=== PATIENT | female | born 1955 | race Caucasian/White ===

== ENCOUNTER 2017-07-31 18:57 | Emergency (ER) | payer BC ==
[2017-07-31] MEDS ORDERED: Diphtheria,Pertussis(Acell),Tetanus Vaccine 0.5 ML Syringe IM ONE (19:18)
[2017-07-31] MEDS ORDERED: Bacitracin Oint 1 GM U/D Packet TOP ONE (19:19)
--- NOTE | 2017-07-31 19:23 | EDM.PDOC ---
ED HPI GENERAL MEDICAL PROBLEM - General Chief Complaint: Laceration Stated Complaint: PT CUT LT HAND Time Seen by Provider: 07/31/17 19:12 - History of Present Illness INITIAL COMMENTS - FREE TEXT/NARRATIVE: HISTORY AND PHYSICAL: History of present illness: The patient is a 61-year-old female with a history of hypertension who presents after sustaining a puncture laceration to her left hand while she was using a knife at home making a salad. Prior to these events the patient was in her usual state of health with no systemic complaints and presents because the area would not stop bleeding. She has no neurosensory changes in her hand and is able to move all digits without compromise. She is unsure of her last tetanus shot. Review of systems: As per history of present illness and below otherwise all systems reviewed and negative. Past medical history: As per history of present illness and as reviewed below otherwise noncontributory. Surgical history: As per history of present illness and as reviewed below otherwise noncontributory. Social history: No reported history of drug or alcohol abuse. Family history: As per history of present illness and as reviewed below otherwise noncontributory. Physical exam: General: Well-developed well-nourished overweight female who is nontoxic and vital signs are reviewed by me HEENT: Atraumatic, normocephalic, negative for conjunctival pallor or scleral icterus, mucous membranes moist, throat clear, neck supple, nontender, trachea midline. Lungs: Clear to auscultation, breath sounds equal bilaterally, chest nontender. Heart: S1S2, regular rate and rhythm no overt murmurs Abdomen: Soft, nondistended, nontender. NABS Pelvis: Deferred Genitourinary: Deferred. Rectal: Deferred. Extremities: Atraumatic with full range of motion of all extremities with the exception of the palmar surface of the left hand. At the left hand on the palmar surface near the second MCP there is a 0.5 cm puncture laceration seen which has a slight ooze of blood but no erythema or drainage and no soft tissue swelling. There are no palpable bony deformities and the patient is able to flex and extend throughout all digits without deficits and against resistance. Neurovascular unremarkable. Neuro: Awake, alert, oriented. Cranial nerves II through XII unremarkable. Cerebellum unremarkable. Motor and sensory unremarkable throughout. Exam nonfocal. Diagnostics: [] Therapeutics: Wound care with cleansing and bacitracin and gauze dressing, Tdap Because this is a puncture wound and is very small I will not tach close and have explained to the patient why. We will place her on antibiotics and wound care and have her follow up with her provider in the clinic Impression: Small puncture laceration to left hand stable Definitive disposition and diagnosis as appropriate pending reevaluation and review of above. left hand Pain Score (Numeric/FACES): 2 - Related Data Allergies Allergy/AdvReac Type Severity Reaction Status Date / Time pollen extracts Allergy Fever Verified 07/31/17 19:10 Sulfa (Sulfonamide Allergy Rash Verified 07/31/17 19:10 Antibiotics) Home Meds: Home Meds Levothyroxine 137 mcg PO ONETIME 12/10/14 [History] amLODIPine Besylate [Amlodipine Besylate] 10 mg PO ONETIME 12/10/14 [History] Past Medical History HEENT History: Reports: None Cardiovascular History: Reports: Hypertension Respiratory History: Reports: None Gastrointestinal History: Reports: None Genitourinary History: Reports: None 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 Musculoskeletal History: Reports: None Neurological History: Reports: None Psychiatric History: Reports: None Endocrine/Metabolic History: Reports: Hypothyroidism Other Endocrine/Metabolic History: hypothyroidism Hematologic History: Reports: None Immunologic History: Reports: None Oncologic (Cancer) History: Reports: None Dermatologic History: Reports: None - Infectious Disease History Infectious Disease History: Reports: Measles - Past Surgical History Head Surgeries/Procedures: Reports: None HEENT Surgical History: Reports: None Cardiovascular Surgical History: Reports: None Respiratory Surgical History: Reports: None GI Surgical History: Reports: None Female Surgical History: Reports: Breast Reduction Endocrine Surgical History: Reports: None Musculoskeletal Surgical History: Reports: None Social & Family History - Family History Family Medical History: Noncontributory - Tobacco Use Smoking Status *Q: Never Smoker - Caffeine Use Caffeine Use: Reports: Coffee - Recreational Drug Use Recreational Drug Use: No ED ROS GENERAL - Review of Systems Review Of Systems: ROS reveals no pertinent complaints other than HPI. ED EXAM, SKIN/RASH Exam: See Below (See dictation) Course - Vital Signs Last Recorded V/S: Last Vital Signs Temp 36.6 C 07/31/17 19:11 Pulse 82 07/31/17 19:11 Resp 18 07/31/17 19:11 BP 108/81 07/31/17 19:11 Pulse Ox 95 07/31/17 19:11 - Orders/Labs/Meds Orders: Active Orders 24 hr Category Date Time Status Communication Order [RC] STAT Care 07/31/17 19:18 Ordered Vaccines to be Administered [RC] PER UNIT ROUTINE Care 07/31/17 19:19 Ordered Bacitracin [Bacitracin Oint 1 GM] Med 07/31/17 19:19 Once 1 dose TOP ONETIME ONE Diphth,Pertuss(Acell),Tet Vac [Adacel] Med 07/31/17 19:18 Once 0.5 ml IM .ONCE ONE Departure - Departure Time of Disposition: 19:22 Disposition: Home, Self-Care 01 Condition: Good Clinical Impression: Puncture wound of hand, left Qualifiers: Encounter type: initial encounter Foreign body presence: without foreign body Qualified Code(s): S61.432A - Puncture wound without foreign body of left hand, initial encounter - Discharge Information Referrals: PCP,None [Primary Care Provider] - Additional Instructions: The following information is given to patients seen in the emergency department who are being discharged to home. This information is to outline your options for follow-up care. We provide all patients seen in our emergency department with a follow-up referral. The need for follow-up, as well as the timing and circumstances, are variable depending upon the specifics of your emergency department visit. If you don't have a primary care physician on staff, we will provide you with a referral. We always advise you to contact your personal physician following an emergency department visit to inform them of the circumstance of the visit and for follow-up with them and/or the need for any referrals to a consulting specialist. The emergency department will also refer you to a specialist when appropriate. This referral assures that you have the opportunity for followup care with a specialist. All of these measure are taken in an effort to provide you with optimal care, which includes your followup. Under all circumstances we always encourage you to contact your private physician who remains a resource for coordinating your care. When calling for followup care, please make the office aware that this follow-up is from your recent emergency room visit. If for any reason you are refused follow-up, please contact the [facility] emergency department at and ask to speak to the emergency department charge nurse. JOVAN [facility] Primary care- Internal Medicine and Family [facility] [address] [place] [id number] [facility] Specialty clinic-Plastic Surgery and Hand Surgery Professional Building [address] [place] [address] [address] [place] [address] Please schedule a follow-up appointment with your provider in the clinic or our hand specialist using resources given to above. Do local wound care with mild soap and tap water once or twice a day and apply bacitracin or Neosporin and leave open to air or dressed with a gauze only. Please take antibiotics until they are finished. Return to ER as needed and as discussed - My Orders Last 24 Hours: My Active Orders 07/31/17 19:18 Communication Order [RC] STAT Diphth,Pertuss(Acell),Tet Vac [Adacel] 0.5 ml IM .ONCE ONE 07/31/17 19:19 Vaccines to be Administered [RC] PER UNIT ROUTINE Bacitracin [Bacitracin Oint 1 GM] 1 dose TOP ONETIME ONE - Assessment/Plan Last 24 Hours: My Active Orders 07/31/17 19:18 Communication Order [RC] STAT Diphth,Pertuss(Acell),Tet Vac [Adacel] 0.5 ml IM .ONCE ONE 07/31/17 19:19 Vaccines to be Administered [RC] PER UNIT ROUTINE Bacitracin [Bacitracin Oint 1 GM] 1 dose TOP ONETIME ONE
[2017-07-31 19:56] VITALS: BP 111/59
== END 2017-07-31 19:50 | disposition home or self-care (01) ==
LOC: MW.ED 18:57
DX: S61.432A Puncture wound without foreign body of left hand, initial encounter (principal); I10 Essential (primary) hypertension; E03.9 Hypothyroidism, unspecified; Z91.048 Other nonmedicinal substance allergy status; Z23 Encounter for immunization; Z88.2 Allergy status to sulfonamides; W26.0XXA Contact with knife, initial encounter; Y92.009 Unspecified place in unspecified non-institutional (private) residence as the place of occurrence of the external cause
CPT/HCPCS: 90471; 90715; 99282-25

== ENCOUNTER 2018-05-31 13:29 | Emergency (ER) | payer BC ==
[2018-05-31] MEDS ORDERED: diphenhydrAMINE 25 MG Cap PO ONE (13:31)
[2018-05-31] MEDS ORDERED: predniSONE 20 MG Tab PO ONE (13:31)
--- NOTE | 2018-05-31 13:40 | EDM.PDOC ---
ED HPI GENERAL MEDICAL PROBLEM - General Chief Complaint: Allergic Reaction Stated Complaint: ALLERGIC REACTION Time Seen by Provider: 05/31/18 13:31 Source of Information: Reports: Patient History Limitations: Reports: No Limitations - History of Present Illness INITIAL COMMENTS - FREE TEXT/NARRATIVE: History of present illness: []Patient has been having intermittent hives for the last 2 weeks and is not sure what she is reacting to. Today around noon patients reaction became worse with more hives around her neck and she felt that her voice became hoarse. She denies having any difficulty breathing, swallowing or feeling tightness in her throat. She took 2 Benadryl tablets one symptoms worsened. She denies any abdominal crampy: Nausea, vomiting or any other symptoms. Review of systems: As per history of present illness and below otherwise all systems reviewed and negative. Past medical history: As per history of present illness and as reviewed below otherwise noncontributory. Surgical history: As per history of present illness and as reviewed below otherwise noncontributory. Social history: No reported history of drug or alcohol abuse. Family history: As per history of present illness and as reviewed below otherwise noncontributory. Physical exam: General: Well developed, well nourished in NAD HEENT: Atraumatic, normocephalic, pupils reactive, negative for conjunctival pallor or scleral icterus, mucous membranes moist, throat clear no edema,, neck supple, nontender, trachea midline. No stridor Lungs: Clear to auscultation, breath sounds equal bilaterally, chest nontender. Heart: S1S2, regular, negative for clicks, rubs, or JVD. Abdomen: NABS, Soft, nondistended, nontender. Negative for masses or hepatosplenomegaly. Negative for costovertebral tenderness. Pelvis: Stable nontender. Genitourinary: Deferred. Rectal: Deferred. Extremities: Atraumatic, negative for cords or calf pain. Neurovascular unremarkable. Neuro: Awake, alert, oriented. Cranial nerves II through XII unremarkable. Cerebellum unremarkable. Motor and sensory unremarkable throughout. Exam nonfocal. Skin: Diffuse irregular raised pale to mildly erythematous lesions consistent with urticaria, warm and dry Diagnostics: None Therapeutics: Benadryl, prednisone, Pepcid, IV hydration, epinephrine ED Course: Recheck patient at 14:00 and throat is now edematous she has no stridor and patient does not feel any throat tightness Impression: Urticaria Prescriptions: Medrol Dosepak Plan: Follow up with primary care, take medicines as directed, trachea symptoms worsen or change. Definitive disposition and diagnosis as appropriate pending reevaluation and review of above. - Related Data Allergies Allergy/AdvReac Type Severity Reaction Status Date / Time pollen extracts Allergy Fever Verified 05/31/18 13:38 Sulfa (Sulfonamide Allergy Rash Verified 05/31/18 13:38 Antibiotics) Home Meds: Home Meds Levothyroxine 137 mcg PO ONETIME 12/10/14 [History] amLODIPine Besylate [Amlodipine Besylate] 10 mg PO ONETIME 12/10/14 [History] Lisinopril 05/31/18 [History] methylPREDNISolone [Medrol] 4 mg PO ASDIRECTED #1 dosepk 05/31/18 [Rx] Past Medical History HEENT History: Reports: None Cardiovascular History: Reports: Hypertension Respiratory History: Reports: None Gastrointestinal History: Reports: None Genitourinary History: Reports: None 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 Musculoskeletal History: Reports: None Neurological History: Reports: None Psychiatric History: Reports: None Endocrine/Metabolic History: Reports: Hypothyroidism Other Endocrine/Metabolic History: hypothyroidism Hematologic History: Reports: None Immunologic History: Reports: None Oncologic (Cancer) History: Reports: None Dermatologic History: Reports: None - Infectious Disease History Infectious Disease History: Reports: Measles - Past Surgical History Head Surgeries/Procedures: Reports: None HEENT Surgical History: Reports: None Cardiovascular Surgical History: Reports: None Respiratory Surgical History: Reports: None GI Surgical History: Reports: None Female Surgical History: Reports: Breast Reduction Endocrine Surgical History: Reports: None Musculoskeletal Surgical History: Reports: None Social & Family History - Family History Family Medical History: Noncontributory - Caffeine Use Caffeine Use: Reports: Coffee ED ROS ALLERGIC REACTION - Review of Systems Review Of Systems: ROS reveals no pertinent complaints other than HPI. ED EXAM GENERAL NO PERIP PULSE - Physical Exam Exam: See Below (See history of present illness) Course - Vital Signs Last Recorded V/S: Last Vital Signs Temp 97.0 F 05/31/18 13:33 Pulse 68 05/31/18 13:33 Resp 20 05/31/18 13:33 BP 175/87 H 05/31/18 13:33 Pulse Ox 97 05/31/18 13:33 - Orders/Labs/Meds Orders: Active Orders 24 hr Category Date Time Status Sodium Chloride 0.9% [Saline Flush] Med 05/31/18 13:59 Active 10 ml FLUSH ASDIRECTED PRN Sodium Chloride 0.9% [Saline Flush] Med 05/31/18 13:59 Active 2.5 ml FLUSH ASDIRECTED PRN Saline Lock Insert [OM.PC] Stat Oth 05/31/18 13:58 Ordered Medication Orders Sodium Chloride (Saline Flush) 10 ml FLUSH ASDIRECTED PRN PRN Reason: Keep Vein Open Last Admin: 05/31/18 14:10 Dose: 10 ml Sodium Chloride (Saline Flush) 2.5 ml FLUSH ASDIRECTED PRN PRN Reason: Keep Vein Open Last Admin: 05/31/18 14:10 Dose: 2.5 ml Meds: Medications Generic Name Dose Route Start Last Admin Trade Name Freq PRN Reason Stop Dose Admin Sodium Chloride 10 ml 05/31/18 13:59 05/31/18 14:10 Saline Flush FLUSH 10 ml ASDIRECTED PRN Administration Keep Vein Open Sodium Chloride 2.5 ml 05/31/18 13:59 05/31/18 14:10 Saline Flush FLUSH 2.5 ml ASDIRECTED PRN Administration Keep Vein Open Discontinued Medications Generic Name Dose Route Start Last Admin Trade Name Freq PRN Reason Stop Dose Admin Diphenhydramine HCl 25 mg 05/31/18 13:31 05/31/18 13:42 Benadryl PO 05/31/18 13:32 25 mg ONETIME ONE Administration Epinephrine HCl 0.4 mg 05/31/18 13:59 05/31/18 14:09 Adrenalin IM 05/31/18 14:00 0.4 mg ONETIME ONE Administration Famotidine 20 mg 05/31/18 13:59 05/31/18 14:10 Pepcid IVPUSH 05/31/18 14:00 20 mg ONETIME ONE Administration Sodium Chloride 1,000 mls @ 999 mls/hr 05/31/18 14:15 05/31/18 14:41 Normal Saline IV 05/31/18 15:15 999 mls/hr .Bolus ONE Administration Prednisone 60 mg 05/31/18 13:31 05/31/18 13:42 Prednisone PO 05/31/18 13:32 60 mg ONETIME ONE Administration Departure - Departure Time of Disposition: 15:23 Disposition: Home, Self-Care 01 Condition: Good Clinical Impression: Urticaria - Discharge Information *PRESCRIPTION DRUG MONITORING PROGRAM REVIEWED*: No *COPY OF PRESCRIPTION DRUG MONITORING REPORT IN PATIENT KATHLEEN: No Prescriptions: methylPREDNISolone [Medrol] 4 mg PO ASDIRECTED #1 dosepk Additional Instructions: The following information is given to patients seen in the emergency department who are being discharged to home. This information is to outline your options for follow-up care. We provide all patients seen in our emergency department with a follow-up referral. The need for follow-up, as well as the timing and circumstances, are variable depending upon the specifics of your emergency department visit. If you don't have a primary care physician on staff, we will provide you with a referral. We always advise you to contact your personal physician following an emergency department visit to inform them of the circumstance of the visit and for follow-up with them and/or the need for any referrals to a consulting specialist. The emergency department will also refer you to a specialist when appropriate. This referral assures that you have the opportunity for follow-up care with a specialist. All of these measure are taken in an effort to provide you with optimal care, which includes your follow-up. Under all circumstances we always encourage you to contact your private physician who remains a resource for coordinating your care. When calling for follow-up care, please make the office aware that this follow-up is from your recent emergency room visit. If for any reason you are refused follow-up, please contact the [facility] Emergency Department at and asked to speak to the emergency department charge nurse. Take meds as directed, you can also take Pepcid twice a day as well as Benadryl for itching and hives. follow up with your primary care physician, return to ER if symptoms worsen or change. [facility] [address] [place] [id number] - My Orders Last 24 Hours: My Active Orders 05/31/18 13:58 Saline Lock Insert [OM.PC] Stat 05/31/18 13:59 Sodium Chloride 0.9% [Saline Flush] 10 ml FLUSH ASDIRECTED PRN Sodium Chloride 0.9% [Saline Flush] 2.5 ml FLUSH ASDIRECTED PRN - Assessment/Plan Last 24 Hours: My Active Orders 05/31/18 13:58 Saline Lock Insert [OM.PC] Stat 05/31/18 13:59 Sodium Chloride 0.9% [Saline Flush] 10 ml FLUSH ASDIRECTED PRN Sodium Chloride 0.9% [Saline Flush] 2.5 ml FLUSH ASDIRECTED PRN
[2018-05-31] MEDS ORDERED: Famotidine 20 MG/2 ML SDV IVPUSH ONE (13:59)
[2018-05-31] MEDS ORDERED: Sodium Chloride 0.9% 10 ML Syringe FLUSH PRN (13:59)
[2018-05-31] MEDS ORDERED: EPINEPHrine 1 MG/ML SDV IM ONE (13:59)
[2018-05-31] MEDS ORDERED: Sodium Chloride 0.9% 2.5 ML Syringe FLUSH PRN (13:59)
[2018-05-31] MEDS ORDERED: Sodium Chloride 0.9% 1,000 ML IV ONE (14:15)
[2018-05-31 15:47] VITALS: BP 183/75
== END 2018-05-31 15:44 | disposition home or self-care (01) ==
LOC: MW.ED 13:29
DX: L50.9 Urticaria, unspecified (principal); I10 Essential (primary) hypertension; E03.9 Hypothyroidism, unspecified; Z79.899 Other long term (current) drug therapy; Z88.2 Allergy status to sulfonamides; Z88.8 Allergy status to other drugs, medicaments and biological substances
CPT/HCPCS: 96361; 96372; 96374; 99283; A9270; J0171; J3490; J7040

== ENCOUNTER 2018-06-10 18:53 | Emergency (ER) | payer BC ==
[2018-06-10] MEDS ORDERED: predniSONE 20 MG Tab PO ONE (19:12)
[2018-06-10] MEDS ORDERED: diphenhydrAMINE 50 MG Cap PO ONE (19:13)
--- NOTE | 2018-06-10 19:16 | EDM.PDOC ---
ED HPI GENERAL MEDICAL PROBLEM - General Chief Complaint: Allergic Reaction Stated Complaint: ALLERGY ATTACK Time Seen by Provider: 06/10/18 19:01 - History of Present Illness INITIAL COMMENTS - FREE TEXT/NARRATIVE: HISTORY AND PHYSICAL: History of present illness: Patient is a 62-year-old white female who is a history of urticaria this is been a chronic intermittent problem she had a recent event was treated appropriately chest her medications were subsequently terminated pending allergy immunology follow-up which is scheduled Thursday in the interim she developed recurrence of the urticaria. There's been no tongue or lip swelling no dysphagia or dysphonia Review of systems: As per history of present illness and below otherwise all systems reviewed and negative. Past medical history: As per history of present illness and as reviewed below otherwise noncontributory. Surgical history: As per history of present illness and as reviewed below otherwise noncontributory. Social history: No reported history of drug or alcohol abuse. Family history: As per history of present illness and as reviewed below otherwise noncontributory. Physical exam: HEENT: Atraumatic, normocephalic, pupils reactive, negative for conjunctival pallor or scleral icterus, mucous membranes moist, throat clear, neck supple, nontender, trachea midline. Lungs: Clear to auscultation, breath sounds equal bilaterally, chest nontender. Heart: S1S2, regular, negative for clicks, rubs, or JVD. Abdomen: Soft, nondistended, nontender. Negative for masses or hepatosplenomegaly. Negative for costovertebral tenderness. Pelvis: Stable nontender. Genitourinary: Deferred. Rectal: Deferred. Extremities: Atraumatic, negative for cords or calf pain. Neurovascular unremarkable. Neuro: Awake, alert, oriented. Cranial nerves II through XII unremarkable. Cerebellum unremarkable. Motor and sensory unremarkable throughout. Exam nonfocal. Skin: Patient has diffuse urticarial type rash no petechiae and nontoxic in appearance Diagnostics: None Therapeutics: Benadryl 50 mg by mouth prednisone 60 mg by mouth Impression: #1 urticaria Definitive disposition and diagnosis as appropriate pending reevaluation and review of above. - Related Data Allergies Allergy/AdvReac Type Severity Reaction Status Date / Time methylprednisolone Allergy Rash Verified 06/10/18 19:02 pollen extracts Allergy Fever Verified 05/31/18 13:38 Sulfa (Sulfonamide Allergy Rash Verified 05/31/18 13:38 Antibiotics) Home Meds: Home Meds Levothyroxine 137 mcg PO ONETIME 12/10/14 [History] amLODIPine Besylate [Amlodipine Besylate] 10 mg PO ONETIME 12/10/14 [History] Lisinopril 05/31/18 [History] methylPREDNISolone [Medrol] 4 mg PO ASDIRECTED #1 dosepk 05/31/18 [Rx] Past Medical History HEENT History: Reports: None Cardiovascular History: Reports: Hypertension Respiratory History: Reports: None Gastrointestinal History: Reports: None Genitourinary History: Reports: None [employer] History: Reports: None Musculoskeletal History: Reports: None Neurological History: Reports: None Psychiatric History: Reports: None Endocrine/Metabolic History: Reports: Hypothyroidism Other Endocrine/Metabolic History: hypothyroidism Hematologic History: Reports: None Immunologic History: Reports: None Oncologic (Cancer) History: Reports: None Dermatologic History: Reports: None - Infectious Disease History Infectious Disease History: Reports: Measles, Mononucleosis - Past Surgical History Head Surgeries/Procedures: Reports: None HEENT Surgical History: Reports: None Cardiovascular Surgical History: Reports: None Respiratory Surgical History: Reports: None GI Surgical History: Reports: None Female Surgical History: Reports: Breast Reduction Endocrine Surgical History: Reports: None Musculoskeletal Surgical History: Reports: None Social & Family History - Family History Family Medical History: Noncontributory - Tobacco Use Smoking Status *Q: Never Smoker Second Hand Smoke Exposure: No - Caffeine Use Caffeine Use: Reports: Coffee - Recreational Drug Use Recreational Drug Use: No ED ROS ALLERGIC REACTION - Review of Systems Review Of Systems: ROS reveals no pertinent complaints other than HPI. ED EXAM GENERAL NO PERIP PULSE - Physical Exam Exam: See Below (See dictation) Course - Vital Signs Last Recorded V/S: Last Vital Signs Temp 37.2 C 06/10/18 19:03 Pulse 86 06/10/18 19:03 Resp 16 06/10/18 19:03 BP 185/98 H 06/10/18 19:03 Pulse Ox 97 06/10/18 19:03 - Orders/Labs/Meds Orders: Active Orders 24 hr Category Date Time Status diphenhydrAMINE [Benadryl] Med 06/10/18 19:13 Once 50 mg PO ONETIME ONE Meds: Medications Discontinued Medications Generic Name Dose Route Start Last Admin Trade Name Freq PRN Reason Stop Dose Admin Prednisone 60 mg 06/10/18 19:12 Prednisone PO 06/10/18 19:13 ONETIME ONE Departure - Departure Time of Disposition: 19:15 Disposition: Home, Self-Care 01 Condition: Good Clinical Impression: Urticaria - Discharge Information Referrals: PCP,None [Primary Care Provider] - Additional Instructions: The following information is given to patients seen in the emergency department who are being discharged to home. This information is to outline your options for follow-up care. We provide all patients seen in our emergency department with a follow-up referral. The need for follow-up, as well as the timing and circumstances, are variable depending upon the specifics of your emergency department visit. If you don't have a primary care physician on staff, we will provide you with a referral. We always advise you to contact your personal physician following an emergency department visit to inform them of the circumstance of the visit and for follow-up with them and/or the need for any referrals to a consulting specialist. The emergency department will also refer you to a specialist when appropriate. This referral assures that you have the opportunity for followup care with a specialist. All of these measure are taken in an effort to provide you with optimal care, which includes your followup. Under all circumstances we always encourage you to contact your private physician who remains a resource for coordinating your care. When calling for followup care, please make the office aware that this follow-up is from your recent emergency room visit. If for any reason you are refused follow-up, please contact the [facility] emergency department at and asked to speak to the emergency department charge nurse. Benadryl prednisone as directed EpiPen as discussed keep scheduled appointment on Thursday return as needed as discussed - My Orders Last 24 Hours: My Active Orders 06/10/18 19:13 diphenhydrAMINE [Benadryl] 50 mg PO ONETIME ONE - Assessment/Plan Last 24 Hours: My Active Orders 06/10/18 19:13 diphenhydrAMINE [Benadryl] 50 mg PO ONETIME ONE
[2018-06-10 19:54] VITALS: BP 170/86
== END 2018-06-10 19:40 | disposition home or self-care (01) ==
LOC: MW.ED 18:53
DX: L50.9 Urticaria, unspecified (principal); I10 Essential (primary) hypertension; Z79.899 Other long term (current) drug therapy; Z88.2 Allergy status to sulfonamides; Z91.09 Other allergy status, other than to drugs and biological substances; Z88.8 Allergy status to other drugs, medicaments and biological substances
CPT/HCPCS: 99284; A9270; 99282

== ENCOUNTER 2018-06-23 10:58 | Emergency (ER) | payer BC ==
[2018-06-23] MEDS ORDERED: Sodium Chloride 0.9% 1,000 ML IV ONE (11:14)
[2018-06-23] MEDS ORDERED: diphenhydrAMINE 50 MG/ML SDV IVPUSH ONE (11:14)
[2018-06-23] MEDS ORDERED: Famotidine 20 MG/2 ML SDV IVPUSH ONE (11:14)
--- NOTE | 2018-06-23 11:24 | EDM.PDOC ---
ED HPI GENERAL MEDICAL PROBLEM - General Chief Complaint: Allergic Reaction Stated Complaint: ALLERGIC REACTION Time Seen by Provider: 06/23/18 11:01 Source of Information: Reports: Patient History Limitations: Reports: No Limitations - History of Present Illness INITIAL COMMENTS - FREE TEXT/NARRATIVE: HISTORY AND PHYSICAL: History of present illness: Patient is a 62-year-old female who presents to the emergency room today with complaints of lip swelling. She states over the past 2 weeks she has been dealing with hives which she has been treated for an allergic reaction. She states she did actually follow-up with an [employer] rug setter who told her that this was not an allergic reaction. She states she finished a course of steroids approximately 5 days ago. The [employer] rug setter believes that her hives is related to her thyroid or another underlying cause. Patient reports that her hives have been healing and are better than they have been. This morning she woke up and had coffee, oatmeal with raisins and proceeded to go to work. She started to notice her lips began to swell and was concerned the "allergic reaction" was returning. Denies any dyspnea, shortness of breathe, tongue swelling. She did take his Zyrtec prior to arrival. She denies any new exposures. Patient denies any fever, chills, headache, change in vision, syncope or near syncope. Denies any chest pain, back pain, shortness of breath or cough. Denies any abdominal pain, nausea, vomiting, diarrhea, constipation or dysuria. Patient has been eating and drinking appropriately. Review of systems: As per history of present illness and below otherwise all systems reviewed and negative. Past medical history: As per history of present illness and as reviewed below otherwise noncontributory. Surgical history: As per history of present illness and as reviewed below otherwise noncontributory. Social history: See social history for further information Family history: As per history of present illness and as reviewed below otherwise noncontributory. Physical exam: General: Well-developed and well-nourished 62-year-old female. Alert and oriented. Nontoxic appearing and in no acute distress. HEENT: Atraumatic, normocephalic, pupils equal and reactive bilaterally, negative for conjunctival pallor or scleral icterus, mucous membranes moist, upper and lower lip swelling TMs normal bilaterally, throat clear (no soft tissue swelling posteriorly), neck supple, nontender, trachea midline. No drooling or trismus noted. No meningeal signs. No hot potato voice noted. Lungs: Clear to auscultation, breath sounds equal bilaterally, chest nontender. Breathes easily and even. No work of breathing. Able to swallow salivia and drinks without difficulty. Heart: S1S2, regular rate and rhythm without overt murmur Abdomen: Soft, nondistended, nontender. Negative for masses or hepatosplenomegaly. Negative for costovertebral tenderness. Pelvis: Stable nontender. Genitourinary: Deferred. Rectal: Deferred. Skin: Mild lip swelling to upper/lower lips. Intact, warm, dry. No lesions or rashes noted. Extremities: Atraumatic, moves all extremities per self with difficulty or deficits, negative for cords or calf pain. Neurovascular unremarkable. Neuro: Awake, alert, oriented. Cranial nerves II through XII unremarkable. Cerebellum unremarkable. Motor and sensory unremarkable throughout. Exam nonfocal. Notes: Patient does take lisinopril daily, has taken this for approximately a year. As she has not had any new exposures I feel that her angioedema is related to her lisinopril use. Will have her stop this medication now. She states she feels better since arrival. She states that her air way does not feel compromised. is at the bedside. Admission was offered, patient declines. We did discuss signs and symptoms that would prompt her to immediately return to the emergency room. Both voice understanding. Supportive care measures were reviewed and discussed. Voices understanding and is agreeable to plan of care. Denies any further questions or concerns at this time. Diagnostics: None Therapeutics: IV fluids, Pepcid, Benadryl Prescription: Medrol Dosepak Metoprolol Succ Impression: Allergic reaction, Buck Inhibitor Plan: 1. Stop your Lisinopril. This is considered an allergy, do not take any BUCK INHIBITORS in the future. 2. While symptomatic continue to routinely take Benadryl 50mg every 4-6 hours and Zantac 150mg twice daily. Take the Medrol dose pack as prescribed. 3. Carry your Epi-Pen with you at all times. Use in the case of an emergency and call 911 and/or present to the ER. 4. Please follow up with your Primary care doctor tomorrow. Return to the ED as needed and as discussed. Definitive disposition and diagnosis as appropriate pending reevaluation and review of above. Onset: Today - Related Data Allergies Allergy/AdvReac Type Severity Reaction Status Date / Time methylprednisolone Allergy Rash Verified 06/23/18 11:03 pollen extracts Allergy Fever Verified 06/23/18 11:03 Sulfa (Sulfonamide Allergy Rash Verified 06/23/18 11:03 Antibiotics) Home Meds: Home Meds Levothyroxine 137 mcg PO ONETIME 12/10/14 [History] amLODIPine Besylate [Amlodipine Besylate] 10 mg PO ONETIME 12/10/14 [History] Lisinopril 2.5 mg PO DAILY 05/31/18 [History] Past Medical History HEENT History: Reports: None Cardiovascular History: Reports: Hypertension Respiratory History: Reports: None Gastrointestinal History: Reports: None Genitourinary History: Reports: None [employer] History: Reports: None Musculoskeletal History: Reports: None Neurological History: Reports: None Psychiatric History: Reports: None Endocrine/Metabolic History: Reports: Hypothyroidism Other Endocrine/Metabolic History: hypothyroidism Hematologic History: Reports: None Immunologic History: Reports: None Oncologic (Cancer) History: Reports: None Dermatologic History: Reports: None - Infectious Disease History Infectious Disease History: Reports: MRSA, Mumps - Past Surgical History Head Surgeries/Procedures: Reports: None HEENT Surgical History: Reports: None Cardiovascular Surgical History: Reports: None Respiratory Surgical History: Reports: None GI Surgical History: Reports: None Female Surgical History: Reports: Breast Reduction Endocrine Surgical History: Reports: None Musculoskeletal Surgical History: Reports: None Social & Family History - Family History Family Medical History: Noncontributory - Tobacco Use Smoking Status *Q: Never Smoker Second Hand Smoke Exposure: No - Caffeine Use Caffeine Use: Reports: Coffee - Recreational Drug Use Recreational Drug Use: No ED ROS ALLERGIC REACTION - Review of Systems Review Of Systems: ROS reveals no pertinent complaints other than HPI. ED EXAM GENERAL NO PERIP PULSE - Physical Exam Exam: See Below (See dictation) Course - Vital Signs Last Recorded V/S: Last Vital Signs Temp 97.7 F 06/23/18 11:05 Pulse 74 06/23/18 12:06 Resp 18 06/23/18 12:06 BP 131/62 06/23/18 12:06 Pulse Ox 98 06/23/18 12:06 - Orders/Labs/Meds Orders: Active Orders 24 hr Category Date Time Status Sodium Chloride 0.9% [Normal Saline] 1,000 ml Med 06/23/18 11:14 Active IV STAT Medication Orders Sodium Chloride (Normal Saline) 1,000 mls @ 999 mls/hr IV STAT ONE Stop: 06/23/18 12:14 Last Admin: 06/23/18 11:31 Dose: 999 mls/hr Meds: Medications Generic Name Dose Route Start Last Admin Trade Name Freq PRN Reason Stop Dose Admin Sodium Chloride 1,000 mls @ 999 mls/hr 06/23/18 11:14 06/23/18 11:31 Normal Saline IV 06/23/18 12:14 999 mls/hr STAT ONE Administration Discontinued Medications Generic Name Dose Route Start Last Admin Trade Name Freq PRN Reason Stop Dose Admin Diphenhydramine HCl 50 mg 06/23/18 11:14 06/23/18 11:32 Benadryl IVPUSH 06/23/18 11:15 50 mg ONETIME ONE Administration Famotidine 20 mg 06/23/18 11:14 06/23/18 11:31 Pepcid IVPUSH 06/23/18 11:15 20 mg ONETIME ONE Administration Departure - Departure Time of Disposition: 12:14 Disposition: Home, Self-Care 01 Clinical Impression: Allergy to BUCK inhibitors Angioedema Qualifiers: Encounter type: initial encounter Qualified Code(s): T78.3XXA - Angioneurotic edema, initial encounter - Discharge Information Instructions: Angioedema, [id number] Referrals: PCP,Unknown [Primary Care Provider] - Additional Instructions: The following information is given to patients seen in the emergency department who are being discharged to home. This information is to outline your options for follow-up care. We provide all patients seen in our emergency department with a follow-up referral. The need for follow-up, as well as the timing and circumstances, are variable depending upon the specifics of your emergency department visit. If you don't have a primary care physician on staff, we will provide you with a referral. We always advise you to contact your personal physician following an emergency department visit to inform them of the circumstance of the visit and for follow-up with them and/or the need for any referrals to a consulting specialist. The emergency department will also refer you to a specialist when appropriate. This referral assures that you have the opportunity for follow-up care with a specialist. All of these measure are taken in an effort to provide you with optimal care, which includes your follow-up. Under all circumstances we always encourage you to contact your private physician who remains a resource for coordinating your care. When calling for follow-up care, please make the office aware that this follow-up is from your recent emergency room visit. If for any reason you are refused follow-up, please contact the [facility] Emergency Department at and asked to speak to the emergency department charge nurse. [facility] [address] [place] [id number] [address] 1. Stop your Lisinopril. This is considered an allergy, do not take any BUCK INHIBITORS in the future. 2. While symptomatic continue to routinely take Benadryl 50mg every 4-6 hours and Zantac 150mg twice daily. Take the Medrol dose pack as prescribed. 3. Carry your Epi-Pen with you at all times. Use in the case of an emergency and call 911 and/or present to the ER. 4. Please follow up with your Primary care doctor tomorrow. Return to the ED as needed and as discussed. - My Orders Last 24 Hours: My Active Orders 06/23/18 11:14 Sodium Chloride 0.9% [Normal Saline] 1,000 ml IV STAT - Assessment/Plan Last 24 Hours: My Active Orders 06/23/18 11:14 Sodium Chloride 0.9% [Normal Saline] 1,000 ml IV STAT
[2018-06-23 12:33] VITALS: BP 147/71
== END 2018-06-23 12:33 | disposition home or self-care (01) ==
LOC: MW.ED 10:58
DX: T78.3XXA Angioneurotic edema, initial encounter (principal); E03.9 Hypothyroidism, unspecified; I10 Essential (primary) hypertension; Z88.2 Allergy status to sulfonamides; Z88.8 Allergy status to other drugs, medicaments and biological substances; Z79.899 Other long term (current) drug therapy; Z91.09 Other allergy status, other than to drugs and biological substances
CPT/HCPCS: 96361; 96374; 96375; 99283; J1200; J3490; J7040

== ENCOUNTER 2018-06-25 06:40 | Emergency (ER) | payer BC ==
[2018-06-25 06:52] VITALS: BP 117/78
--- NOTE | 2018-06-25 07:06 | EDM.PDOC ---
ED HPI GENERAL MEDICAL PROBLEM - General Chief Complaint: Allergic Reaction Stated Complaint: ALLERGIC REACTION- SWELLING IN FACE Time Seen by Provider: 06/25/18 06:56 Source of Information: Reports: Patient History Limitations: Reports: No Limitations - History of Present Illness INITIAL COMMENTS - FREE TEXT/NARRATIVE: History of present illness: []Patient presents with facial swelling without any oral or throat swelling or symptoms. She has had several visits to this ER for "allergic reaction" and has been on prednisone, Zantac, Zyrtec and has an EpiPen. She has seen an inside account executive and was told this is not an allergy and should be worked up for other metabolic causes such as thyroid disease. She was on lisinopril and was recently taken off. She has not followed up with a primary care physician at this time. She did have severe similar allergies when living in [place] 5 years ago. Patient denies any shortness of breath, difficulty swallowing or itching in her throat. Review of systems: As per history of present illness and below otherwise all systems reviewed and negative. Past medical history: As per history of present illness and as reviewed below otherwise noncontributory. Surgical history: As per history of present illness and as reviewed below otherwise noncontributory. Social history: No reported history of drug or alcohol abuse. Family history: As per history of present illness and as reviewed below otherwise noncontributory. Physical exam: General: Well developed, well nourished in NAD HEENT: Atraumatic, normocephalic, pupils reactive, negative for conjunctival pallor or scleral icterus, mucous membranes moist, throat clear, neck supple, nontender, trachea midline. Lungs: Clear to auscultation, breath sounds equal bilaterally, chest nontender. Heart: S1S2, regular, negative for clicks, rubs, or JVD. Abdomen: NABS, Soft, nondistended, nontender. Negative for masses or hepatosplenomegaly. Negative for costovertebral tenderness. Pelvis: Stable nontender. Genitourinary: Deferred. Rectal: Deferred. Extremities: Atraumatic, negative for cords or calf pain. Neurovascular unremarkable. Neuro: Awake, alert, oriented. Cranial nerves II through XII unremarkable. Cerebellum unremarkable. Motor and sensory unremarkable throughout. Exam nonfocal. Skin:warm and dry Diagnostics: None Therapeutics: None ED Course: Stable Impression: Facial swelling Prescriptions: None Plan: I'll have her increase her Zantac twice a day follow-up with primary care for further workup Definitive disposition and diagnosis as appropriate pending reevaluation and review of above. denies pain Pain Score (Numeric/FACES): 0 - Related Data Allergies Allergy/AdvReac Type Severity Reaction Status Date / Time methylprednisolone Allergy Rash Verified 06/25/18 06:47 pollen extracts Allergy Fever Verified 06/25/18 06:47 Sulfa (Sulfonamide Allergy Rash Verified 06/25/18 06:47 Antibiotics) Home Meds: Home Meds Levothyroxine 137 mcg PO ONETIME 12/10/14 [History] amLODIPine Besylate [Amlodipine Besylate] 10 mg PO ONETIME 12/10/14 [History] Metoprolol Succinate 25 mg PO DAILY 06/25/18 [History] Past Medical History HEENT History: Reports: None Cardiovascular History: Reports: Hypertension Respiratory History: Reports: None Gastrointestinal History: Reports: None Genitourinary History: Reports: None 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 Musculoskeletal History: Reports: None Neurological History: Reports: None Psychiatric History: Reports: None Endocrine/Metabolic History: Reports: Hypothyroidism Other Endocrine/Metabolic History: hypothyroidism Hematologic History: Reports: None Immunologic History: Reports: None Oncologic (Cancer) History: Reports: None Dermatologic History: Reports: None - Infectious Disease History Infectious Disease History: Reports: Measles - Past Surgical History Head Surgeries/Procedures: Reports: None HEENT Surgical History: Reports: None Cardiovascular Surgical History: Reports: None Respiratory Surgical History: Reports: None GI Surgical History: Reports: None Female Surgical History: Reports: Breast Reduction Endocrine Surgical History: Reports: None Musculoskeletal Surgical History: Reports: None Social & Family History - Family History Family Medical History: Noncontributory - Tobacco Use Smoking Status *Q: Never Smoker - Caffeine Use Caffeine Use: Reports: Coffee - Recreational Drug Use Recreational Drug Use: No ED ROS ALLERGIC REACTION - Review of Systems Review Of Systems: ROS reveals no pertinent complaints other than HPI. ED EXAM GENERAL NO PERIP PULSE - Physical Exam Exam: See Below (See history of present illness) Course - Vital Signs Last Recorded V/S: Last Vital Signs Temp 98.1 F 06/25/18 06:49 Pulse 86 06/25/18 06:49 Resp 18 06/25/18 06:49 BP 117/78 06/25/18 06:49 Pulse Ox 98 06/25/18 06:49 Departure - Departure Time of Disposition: 07:10 Disposition: Home, Self-Care 01 Condition: Good Clinical Impression: Facial swelling - Discharge Information *PRESCRIPTION DRUG MONITORING PROGRAM REVIEWED*: No *COPY OF PRESCRIPTION DRUG MONITORING REPORT IN PATIENT KATHLEEN: No Referrals: Taco Esparza MD [Primary Care Provider] - Additional Instructions: The following information is given to patients seen in the emergency department who are being discharged to home. This information is to outline your options for follow-up care. We provide all patients seen in our emergency department with a follow-up referral. The need for follow-up, as well as the timing and circumstances, are variable depending upon the specifics of your emergency department visit. If you don't have a primary care physician on staff, we will provide you with a referral. We always advise you to contact your personal physician following an emergency department visit to inform them of the circumstance of the visit and for follow-up with them and/or the need for any referrals to a consulting specialist. The emergency department will also refer you to a specialist when appropriate. This referral assures that you have the opportunity for follow-up care with a specialist. All of these measure are taken in an effort to provide you with optimal care, which includes your follow-up. Under all circumstances we always encourage you to contact your private physician who remains a resource for coordinating your care. When calling for follow-up care, please make the office aware that this follow-up is from your recent emergency room visit. If for any reason you are refused follow-up, please contact the [facility] Emergency Department at and asked to speak to the emergency department charge nurse. [facility] [address] [place] [phone]
== END 2018-06-25 07:26 | disposition home or self-care (01) ==
LOC: MW.ED 06:40
DX: R22.0 Localized swelling, mass and lump, head (principal); I10 Essential (primary) hypertension; Z88.0 Allergy status to penicillin; Z88.8 Allergy status to other drugs, medicaments and biological substances
CPT/HCPCS: 99283

== ENCOUNTER 2019-01-07 15:12 | Emergency (ER) | payer BC ==
[2019-01-07] MEDS ORDERED: methylPREDNISolone Sodium Succinate 125 MG/2 ML SDV IM ONE (15:24)
--- NOTE | 2019-01-07 15:26 | EDM.PDOC ---
ED HPI GENERAL MEDICAL PROBLEM - General Chief Complaint: Allergic Reaction Stated Complaint: SWELLING IN FACE Time Seen by Provider: 01/07/19 15:18 - History of Present Illness INITIAL COMMENTS - FREE TEXT/NARRATIVE: HISTORY AND PHYSICAL: History of present illness: Patient is 63-year-old white female who presents with a concern of angioedema of her lips she's had similar episodes in the past related JEEVAN inhibitor's without significant consequence this episode is thought to be related to an injection she had intraocular for her hypertensive retinopathy she had this swelling which was reportedly not uncommon per her fraud investigator who she did notify he recommended antihistamines which she talk she's had no significant improvement are grossly slight increase in the swelling but no tongue swelling difficulty breathing or swallowing Review of systems: As per history of present illness and below otherwise all systems reviewed and negative. Past medical history: As per history of present illness and as reviewed below otherwise noncontributory. Surgical history: As per history of present illness and as reviewed below otherwise noncontributory. Social history: No reported history of drug or alcohol abuse. Family history: As per history of present illness and as reviewed below otherwise noncontributory. Physical exam: HEENT: Atraumatic, normocephalic, pupils reactive, negative for conjunctival pallor or scleral icterus, mucous membranes moist, throat clear, neck supple, nontender, trachea midline. Angioedema noted of her upper lip greater than her lower lip and mild to moderate there is no tongue swelling oropharynx otherwise normal Lungs: Clear to auscultation, breath sounds equal bilaterally, chest nontender. Heart: S1S2, regular, negative for clicks, rubs, or JVD. Abdomen: Soft, nondistended, nontender. Negative for masses or hepatosplenomegaly. Negative for costovertebral tenderness. Pelvis: Stable nontender. Genitourinary: Deferred. Rectal: Deferred. Extremities: Atraumatic, negative for cords or calf pain. Neurovascular unremarkable. Neuro: Awake, alert, oriented. Cranial nerves II through XII unremarkable. Cerebellum unremarkable. Motor and sensory unremarkable throughout. Exam nonfocal. Diagnostics: None Therapeutics: Solu-Medrol 125 mg IM Impression: #1 angioedema probable allergic reaction Definitive disposition and diagnosis as appropriate pending reevaluation and review of above. - Related Data Allergies Allergy/AdvReac Type Severity Reaction Status Date / Time pollen extracts Allergy Fever Verified 01/07/19 15:21 Sulfa (Sulfonamide Allergy Rash Verified 01/07/19 15:21 Antibiotics) Home Meds: Home Meds Levothyroxine 137 mcg PO ONETIME 12/10/14 [History] amLODIPine Besylate [Amlodipine Besylate] 10 mg PO ONETIME 12/10/14 [History] Metoprolol Succinate 25 mg PO DAILY 06/25/18 [History] Past Medical History HEENT History: Reports: None Cardiovascular History: Reports: Hypertension Respiratory History: Reports: None Gastrointestinal History: Reports: None Genitourinary History: Reports: None 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 Musculoskeletal History: Reports: None Neurological History: Reports: None Psychiatric History: Reports: None Endocrine/Metabolic History: Reports: Hypothyroidism Other Endocrine/Metabolic History: hypothyroidism Hematologic History: Reports: None Immunologic History: Reports: None Oncologic (Cancer) History: Reports: None Dermatologic History: Reports: None - Infectious Disease History Infectious Disease History: Reports: Measles - Past Surgical History Head Surgeries/Procedures: Reports: None HEENT Surgical History: Reports: None Cardiovascular Surgical History: Reports: None Respiratory Surgical History: Reports: None GI Surgical History: Reports: None Female Surgical History: Reports: Breast Reduction Endocrine Surgical History: Reports: None Musculoskeletal Surgical History: Reports: None Social & Family History - Family History Family Medical History: Noncontributory - Caffeine Use Caffeine Use: Reports: Coffee ED ROS ALLERGIC REACTION - Review of Systems Review Of Systems: ROS reveals no pertinent complaints other than HPI. ED EXAM GENERAL NO PERIP PULSE - Physical Exam Exam: See Below (See dictation) Course - Vital Signs Last Recorded V/S: Last Vital Signs Temp 36.1 C 01/07/19 15:19 Pulse 94 01/07/19 15:19 Resp 18 01/07/19 15:19 BP 150/85 H 01/07/19 15:19 Pulse Ox 95 01/07/19 15:19 Departure - Departure Time of Disposition: 15:25 Disposition: Home, Self-Care 01 Condition: Good Clinical Impression: Angioedema - Discharge Information Referrals: Taco Esparza MD [Primary Care Provider] - Additional Instructions: The following information is given to patients seen in the emergency department who are being discharged to home. This information is to outline your options for follow-up care. We provide all patients seen in our emergency department with a follow-up referral. The need for follow-up, as well as the timing and circumstances, are variable depending upon the specifics of your emergency department visit. If you don't have a primary care physician on staff, we will provide you with a referral. We always advise you to contact your personal physician following an emergency department visit to inform them of the circumstance of the visit and for follow-up with them and/or the need for any referrals to a consulting specialist. The emergency department will also refer you to a specialist when appropriate. This referral assures that you have the opportunity for followup care with a specialist. All of these measure are taken in an effort to provide you with optimal care, which includes your followup. Under all circumstances we always encourage you to contact your private physician who remains a resource for coordinating your care. When calling for followup care, please make the office aware that this follow-up is from your recent emergency room visit. If for any reason you are refused follow-up, please contact the [facility] emergency department at and asked to speak to the emergency department charge nurse. Continue antihistamines as directed prednisone as prescribed follow-up primary medical doctor as needed as discussed and return as needed as discussed
[2019-01-07 15:31] VITALS: BP 150/85
[2019-01-07 16:11] VITALS: PULSE 82
== END 2019-01-07 16:14 | disposition home or self-care (01) ==
LOC: MW.ED 15:12
DX: T78.3XXA Angioneurotic edema, initial encounter (principal); I10 Essential (primary) hypertension; E03.9 Hypothyroidism, unspecified; Z79.890 Hormone replacement therapy; Z79.899 Other long term (current) drug therapy; Z88.2 Allergy status to sulfonamides; Z91.048 Other nonmedicinal substance allergy status
CPT/HCPCS: 96372; 99283; J2930

== ENCOUNTER 2019-03-07 01:38 | Emergency (ER) | payer BC ==
[2019-03-07] MEDS ORDERED: Albuterol/Ipratropium 3.0-0.5 MG/3 ML Neb Soln NEB ONE (01:51)
--- NOTE | 2019-03-07 01:56 | EDM.PDOC ---
ED HPI GENERAL MEDICAL PROBLEM - General Chief Complaint: Respiratory Problem Stated Complaint: SOB Time Seen by Provider: 03/07/19 01:46 - History of Present Illness INITIAL COMMENTS - FREE TEXT/NARRATIVE: HISTORY AND PHYSICAL: History of present illness: The patient is a 63-year-old female with history of hypertension and hypothyroidism who did get her influenza shot this year and presents with 3-1/2 days of hacking cough occasionally productive of phlegm feeling short of breath and as a result of coughing so hard having pain with swallowing and a sore throat and feeling like her throat is swollen area she's had no fevers or chills no chest pain no abdominal pain nausea vomiting or diarrhea. She has not taken anything [id number] for this and does not have any pulmonary history she is aware of. She is not a smoker. She has been eating and drinking normally but says that the cough started first with a lot of sinus and nasal drainage and then the throat started hurting her and she feels like it's very swollen. Review of systems: As per history of present illness and below otherwise all systems reviewed and negative. Past medical history: As per history of present illness and as reviewed below otherwise noncontributory. Surgical history: As per history of present illness and as reviewed below otherwise noncontributory. Social history: No reported history of drug or alcohol abuse. Family history: As per history of present illness and as reviewed below otherwise noncontributory. Physical exam: General: Well-developed well-nourished overweight female who is nontoxic and not breathless on examination. She has a raspy voice but it is not muffled. She is maintaining her airway and her secretions normally HEENT: Atraumatic, normocephalic, pupils reactive, negative for conjunctival pallor or scleral icterus, mucous membranes moist, throat clear with no exudates uvula is erythematous and edematous and is hanging touching the back of her tongue, there is no cervical adenopathy or nuchal rigidity, neck supple, nontender, trachea midline. Lungs: Clear to auscultation, breath sounds equal bilaterally, chest nontender. No wheezing stridor or work of breathing and she has a hacking cough with a harsh end point on my evaluation Heart: S1S2, regular rhythm and rate on my evaluation and no overt murmurs Abdomen: Soft, nondistended, nontender. Negative for masses or hepatosplenomegaly. Negative for costovertebral tenderness. Pelvis: Deferred Genitourinary: Deferred. Rectal: Deferred. Extremities: Atraumatic, negative for cords or calf pain. Neurovascular unremarkable. No edema Neuro: Awake, alert, oriented. Cranial nerves II through XII unremarkable. Cerebellum unremarkable. Motor and sensory unremarkable throughout. Exam nonfocal. Diagnostics: Rapid strep influenza chest x-ray soft tissue neck x-ray Therapeutics: Duo nebher and spacer teaching viscous lidocaine, Augmentin, prednisone Impression: Acute bronchitis, uvulitis Laryngitis with odynophagia Definitive disposition and diagnosis as appropriate pending reevaluation and review of above. throat Pain Score (Numeric/FACES): 4 - Related Data Allergies Allergy/AdvReac Type Severity Reaction Status Date / Time pollen extracts Allergy Fever Verified 03/07/19 01:41 povidone-iodine Allergy Swelling Verified 03/07/19 01:41 [From Betadine] soap [From Betadine] Allergy Swelling Verified 03/07/19 01:41 Sulfa (Sulfonamide Allergy Rash Verified 03/07/19 01:41 Antibiotics) Home Meds: Home Meds Levothyroxine 137 mcg PO ONETIME 12/10/14 [History] amLODIPine Besylate [Amlodipine Besylate] 10 mg PO ONETIME 12/10/14 [History] Metoprolol Succinate 25 mg PO DAILY 06/25/18 [History] Past Medical History HEENT History: Reports: None Cardiovascular History: Reports: Hypertension Respiratory History: Reports: None Gastrointestinal History: Reports: None Genitourinary History: Reports: None 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 Musculoskeletal History: Reports: None Neurological History: Reports: None Psychiatric History: Reports: None Endocrine/Metabolic History: Reports: Hypothyroidism Other Endocrine/Metabolic History: hypothyroidism Hematologic History: Reports: None Immunologic History: Reports: None Oncologic (Cancer) History: Reports: None Dermatologic History: Reports: None - Infectious Disease History Infectious Disease History: Reports: Chicken Pox, Measles - Past Surgical History Head Surgeries/Procedures: Reports: None HEENT Surgical History: Reports: None Cardiovascular Surgical History: Reports: None Respiratory Surgical History: Reports: None GI Surgical History: Reports: None Female Surgical History: Reports: Breast Reduction Endocrine Surgical History: Reports: None Musculoskeletal Surgical History: Reports: None Social & Family History - Family History Family Medical History: Noncontributory - Tobacco Use Smoking Status *Q: Never Smoker - Caffeine Use Caffeine Use: Reports: None - Recreational Drug Use Recreational Drug Use: No ED ROS GENERAL - Review of Systems Review Of Systems: Comprehensive ROS is negative, except as noted in HPI. ED EXAM, GENERAL - Physical Exam Exam: See Below (see Dictation) Course - Vital Signs Last Recorded V/S: Last Vital Signs Temp 36.3 C 03/07/19 01:38 Pulse 99 03/07/19 01:38 Resp 18 03/07/19 01:38 BP 97/73 03/07/19 01:38 Pulse Ox 96 03/07/19 01:38 - Orders/Labs/Meds Orders: Active Orders 24 hr Category Date Time Status Communication Order [RC] STAT Care 03/07/19 02:09 Active CULTURE STREP A CONFIRMATION [] Stat Lab 03/07/19 01:50 Results STREP SCRN A RAPID W CULT CONF [] Stat Lab 03/07/19 01:50 Results Amoxicillin/Clavulanate K [Augmentin 875 MG/125 MG] Med 03/07/19 03:29 Once 1 tab PO ONETIME ONE predniSONE Med 03/07/19 03:29 Once 10 mg PO ONETIME ONE Meds: Medications Discontinued Medications Generic Name Dose Route Start Last Admin Trade Name Debra PRN Reason Stop Dose Admin Albuterol/Ipratropium 3 ml 03/07/19 01:51 03/07/19 01:57 Duoneb 3.0-0.5 Mg/3 Ml NEB 03/07/19 01:52 3 ml ONETIME ONE Administration Lidocaine HCl 15 ml 03/07/19 01:57 03/07/19 02:11 Xylocaine 2% Viscous PO 03/07/19 01:58 15 ml ONETIME ONE Administration Departure - Departure Time of Disposition: 03:31 Disposition: Home, Self-Care 01 Condition: Good Clinical Impression: Acute bronchitis, Uvulitis, Laryngitis - Discharge Information Instructions: Acute Bronchitis, Adult, Laryngitis, [id number], Uvulitis Referrals: PCP,None [Primary Care Provider] - Forms: ED Department Discharge Additional Instructions: The following information is given to patients seen in the emergency department who are being discharged to home. This information is to outline your options for follow-up care. We provide all patients seen in our emergency department with a follow-up referral. The need for follow-up, as well as the timing and circumstances, are variable depending upon the specifics of your emergency department visit. If you don't have a primary care physician on staff, we will provide you with a referral. We always advise you to contact your personal physician following an emergency department visit to inform them of the circumstance of the visit and for follow-up with them and/or the need for any referrals to a consulting specialist. The emergency department will also refer you to a specialist when appropriate. This referral assures that you have the opportunity for followup care with a specialist. All of these measure are taken in an effort to provide you with optimal care, which includes your followup. Under all circumstances we always encourage you to contact your private physician who remains a resource for coordinating your care. When calling for followup care, please make the office aware that this follow-up is from your recent emergency room visit. If for any reason you are refused follow-up, please contact the [facility] emergency department at and ask to speak to the emergency department charge nurse. [facility] Primary care- [place] [address] Push Hydration and use cool mist humidifier at sleep times. Please take all medications as prescribed and use the cough medicine only when you're at home as it will make you drowsy. The antibiotic pill is very large and you may break it up to smaller pieces to make it easier to swallow. Please connect with one of our providers or your providers for reevaluation and further care. Return to ER as needed and as discussed Sepsis Event Note - Evaluation Sepsis Screening Result: No Definite Risk - Focused Exam Vital Signs: Vital Signs Temp Pulse Resp BP Pulse Ox 03/07/19 01:38 36.3 C 99 18 97/73 96 Date Exam was Performed: 03/07/19 Time Exam was Performed: 03:30 - My Orders Last 24 Hours: My Active Orders 03/07/19 01:50 CULTURE STREP A CONFIRMATION [RM] Stat STREP SCRN A RAPID W CULT CONF [RM] Stat 03/07/19 02:09 Communication Order [RC] STAT 03/07/19 03:29 Amoxicillin/Clavulanate K [Augmentin 875 MG/125 MG] 1 tab PO ONETIME ONE predniSONE 10 mg PO ONETIME ONE - Assessment/Plan Last 24 Hours: My Active Orders 03/07/19 01:50 CULTURE STREP A CONFIRMATION [RM] Stat STREP SCRN A RAPID W CULT CONF [RM] Stat 03/07/19 02:09 Communication Order [RC] STAT 03/07/19 03:29 Amoxicillin/Clavulanate K [Augmentin 875 MG/125 MG] 1 tab PO ONETIME ONE predniSONE 10 mg PO ONETIME ONE
[2019-03-07] MEDS ORDERED: Lidocaine 2% Viscous Solution 15 ML Cup PO ONE (01:57)
--- NOTE | 2019-03-07 03:28 | CR ---
INDICATION: Pain, shortness of breath COMPARISON: None TECHNIQUE: Frontal and lateral views of the chest FINDINGS: The lungs are clear. There is no pleural effusion or pneumothorax. The cardiomediastinal silhouette is normal. The osseous structures are unremarkable. IMPRESSION: No acute intrathoracic process. Dictated by Yandel Joyner MD @ Mar 07 2019 3:26AM Signed by Dr. Yandel Joyner @ Mar 07 2019 3:27AM
[2019-03-07] MEDS ORDERED: predniSONE 10 MG Tab PO ONE (03:29)
[2019-03-07] MEDS ORDERED: Amoxicillin/Clavulanate K 875-125 MG Tab PO ONE (03:29)
--- NOTE | 2019-03-07 03:30 | CR ---
Indication: Pain, shortness of breath Technique: Frontal and lateral views of the neck Comparison: None Findings/Impression: The visualized airway is patent. The visualized prevertebral soft tissues are in normal thickness. The lower neck is obscured by patient`s shoulders on lateral view. The osseous structures are unremarkable. Dictated by Yandel Joyner MD @ Mar 07 2019 3:28AM Signed by Dr. Yandel Joyner @ Mar 07 2019 3:28AM
[2019-03-07 03:38] VITALS: BP 122/71; PULSE 72
== END 2019-03-07 03:44 | disposition home or self-care (01) ==
LOC: MW.ED 01:38
DX: J20.9 Acute bronchitis, unspecified (principal); K12.2 Cellulitis and abscess of mouth; J04.0 Acute laryngitis; I10 Essential (primary) hypertension; E03.9 Hypothyroidism, unspecified; Z91.09 Other allergy status, other than to drugs and biological substances; Z88.8 Allergy status to other drugs, medicaments and biological substances; Z88.2 Allergy status to sulfonamides; Z91.048 Other nonmedicinal substance allergy status; Z79.899 Other long term (current) drug therapy; Z79.890 Hormone replacement therapy
CPT/HCPCS: 70360; 71046; 87081; 87804; 87880; 94640; 99285; A9270; 99284; J7620-GY

== ENCOUNTER 2019-03-31 08:10 | Inpatient (IN) | payer BC ==
[2019-03-31] MEDS ORDERED: Albuterol/Ipratropium 3.0-0.5 MG/3 ML Neb Soln NEB ONE (08:29)
--- NOTE | 2019-03-31 08:57 | EDM.PDOC ---
[facility] GENERAL MEDICAL PROBLEM - General Chief Complaint: Respiratory Problem Stated Complaint: SHORTNESS OF BREATHE Time Seen by Provider: 03/31/19 08:53 Source of Information: Reports: Patient History Limitations: Reports: No Limitations - History of Present Illness INITIAL COMMENTS - FREE TEXT/NARRATIVE: Patient 63-year-old female with morbid obesity, diabetes, hypertension presented with a chief complaint of worsening shortness of breath. Patient was seen in the clinic yesterday and diagnosed with a pneumonia and started on Levaquin. Patient states that she had worsening shortness of breath this morning and called the ambulance. They gave her several duo nebs which she said improved her symptoms somewhat. Patient denies having any fevers. Duration of symptoms prior to being seen in the clinic was since Thursday. Patient denies any nausea, any vomiting, chest pain, lower extremity swelling. Patient does not have any recent travels. In addition to that documented in the HPI above, the additional ROS was obtained : Constitutional: Denies fevers or chills Eyes: Denies vision changes ENMT: Denies sore throat CV: Denies chest pain Resp: Denies SOB GI: Denies vomiting or diarrhea : Denies painful urination MSK: Denies recent trauma Skin: Denies new rashes Neuro: Denies new numbness or tingling or weakness Endocrine: Denies unexpected weight loss Heme: Denies bleeding disorders I have reviewed the triage vital signs Const: Well nourished, well developed, appears stated age Eyes: PERRL, no conjunctival injection HENT: NCAT, Neck supple without meningismus CV: RRR, Warm, well-perfused extremities RESP: Bilateral wheezing, speaking in full sentences GI: soft, non-tender, non-distended, no masses MSK: No gross deformities appreciated Skin: Warm, dry. No rashes Neuro: Alert, experience specialist II-XII grossly intact. Sensation and motor function of extremities grossly intact. Psych: Appropriate mood and affect Assessment and plan Patient is a 63-year-old female with a chief complaint of shortness of breath. Patient has diffuse wheezing on lung exam which only partially improve after administration of nebulizer treatment. Patient is persistently hypoxic when she comes off of nasal cannula. Given patient's comorbidities and hypoxia, patient will require observation. Patient's chest x-ray appears to be in normal limits therefore I believe this may be more consistent with a bronchitis picture I will continue the antibiotics initially prescribed for her. Other differentials considered were pneumothorax, pulmonary embolism, pneumonia, ACS. Will obtain EKG prior to admission however I do not believe this is related to ACS given other symptoms and physical exam findings. - Related Data Allergies Allergy/AdvReac Type Severity Reaction Status Date / Time pollen extracts Allergy Fever Verified 03/31/19 08:20 povidone-iodine Allergy Swelling Verified 03/31/19 08:20 [From Betadine] soap [From Betadine] Allergy Swelling Verified 03/31/19 08:20 Sulfa (Sulfonamide Allergy Rash Verified 03/31/19 08:20 Antibiotics) Home Meds: Home Meds Levothyroxine 137 mcg PO ONETIME 12/10/14 [History] amLODIPine Besylate [Amlodipine Besylate] 10 mg PO ONETIME 12/10/14 [History] Metoprolol Succinate 25 mg PO DAILY 06/25/18 [History] Past Medical History HEENT History: Reports: None Cardiovascular History: Reports: Hypertension Respiratory History: Reports: None Gastrointestinal History: Reports: None Genitourinary History: Reports: None 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: None Musculoskeletal History: Reports: None Neurological History: Reports: None Psychiatric History: Reports: None Endocrine/Metabolic History: Reports: Hypothyroidism Other Endocrine/Metabolic History: hypothyroidism Hematologic History: Reports: None Immunologic History: Reports: None Oncologic (Cancer) History: Reports: None Dermatologic History: Reports: None - Infectious Disease History Infectious Disease History: Reports: Chicken Pox, Measles - Past Surgical History Head Surgeries/Procedures: Reports: None HEENT Surgical History: Reports: None Cardiovascular Surgical History: Reports: None Respiratory Surgical History: Reports: None GI Surgical History: Reports: None Female Surgical History: Reports: Breast Reduction Endocrine Surgical History: Reports: None Musculoskeletal Surgical History: Reports: None Social & Family History - Family History Family Medical History: Noncontributory - Tobacco Use Smoking Status *Q: Never Smoker Second Hand Smoke Exposure: No - Caffeine Use Caffeine Use: Reports: None - Recreational Drug Use Recreational Drug Use: No ED ROS GENERAL - Review of Systems Review Of Systems: See Below ED EXAM, GENERAL - Physical Exam Exam: See Below Course - Vital Signs Last Recorded V/S: Last Vital Signs Temp 36.4 C 03/31/19 08:15 Pulse 88 03/31/19 09:36 Resp 26 H 03/31/19 08:15 BP 140/72 03/31/19 09:36 Pulse Ox 92 L 03/31/19 09:36 - Orders/Labs/Meds Orders: Active Orders 24 hr Category Date Time Status Admission Status [Patient Status] [ADT] Stat ADT 03/31/19 10:12 Ordered RT Aerosol Therapy [RC] ASDIRECTED Care 03/31/19 08:29 Active Labs: Laboratory Tests 03/31/19 03/31/19 03/31/19 Range/Units 08:51 08:51 08:51 WBC 8.95 (4.0-11.0) K/uL RBC 5.46 (4.30-5.90) M/uL Hgb 14.5 (12.0-16.0) g/dL Hct 42.9 (36.0-46.0) % MCV 78.6 L (80.0-98.0) fL MCH 26.6 L (27.0-32.0) pg MCHC 33.8 (31.0-37.0) g/dL RDW Std Deviation 41.9 (28.0-62.0) fl RDW Coeff of Rafael 15 (11.0-15.0) % Plt Count 256 (150-400) K/uL MPV 9.30 (7.40-12.00) fL Neut % (Auto) 69.0 (48.0-80.0) % Lymph % (Auto) 20.2 (16.0-40.0) % [place] % (Auto) 10.8 (0.0-15.0) % Eos % (Auto) 0.0 (0.0-7.0) % Baso % (Auto) 0.0 (0.0-1.5) % Neut # (Auto) 6.2 H (1.4-5.7) K/uL Lymph # (Auto) 1.8 (0.6-2.4) K/uL [place] # (Auto) 1.0 H (0.0-0.8) K/uL Eos # (Auto) 0.0 (0.0-0.7) K/uL Baso # (Auto) 0.0 (0.0-0.1) K/uL Nucleated RBC % 0.0 /100WBC Nucleated RBCs # 0 K/uL VBG pH 7.39 (7.31-7.41) VBG pCO2 45 (35-45) mmHG VBG pO2 43 H (30-40) mmHG VBG HCO3 27 (22-30) mEq/L VBG Total CO2 24 L (41-51) mmol/L VBG Base Excess 1.8 (-3.0-3.0) Lactate 1.1 (0.20-2.00) mmol/L Sodium (136-145) mmol/L Potassium (3.5-5.1) mmol/L Chloride (98-107) mmol/L Carbon Dioxide (21.0-32.0) mmol/L BUN (7.0-18.0) mg/dL Creatinine (0.6-1.0) mg/dL Est Cr Clr Drug Dosing mL/min Estimated GFR (MDRD) ml/min Glucose (74-106) mg/dL Calcium (8.5-10.1) mg/dL Total Bilirubin (0.2-1.0) mg/dL AST (15-37) IU/L ALT (14-63) IU/L Alkaline Phosphatase (46-116) U/L Total Protein (6.4-8.2) g/dL Albumin (3.4-5.0) g/dL Globulin (2.6-4.0) g/dL Albumin/Globulin Ratio (0.9-1.6) 03/31/19 Range/Units 08:51 WBC (4.0-11.0) K/uL RBC (4.30-5.90) M/uL Hgb (12.0-16.0) g/dL Hct (36.0-46.0) % MCV (80.0-98.0) fL MCH (27.0-32.0) pg MCHC (31.0-37.0) g/dL RDW Std Deviation (28.0-62.0) fl RDW Coeff of Rafael (11.0-15.0) % Plt Count (150-400) K/uL MPV (7.40-12.00) fL Neut % (Auto) (48.0-80.0) % Lymph % (Auto) (16.0-40.0) % [place] % (Auto) (0.0-15.0) % Eos % (Auto) (0.0-7.0) % Baso % (Auto) (0.0-1.5) % Neut # (Auto) (1.4-5.7) K/uL Lymph # (Auto) (0.6-2.4) K/uL [place] # (Auto) (0.0-0.8) K/uL Eos # (Auto) (0.0-0.7) K/uL Baso # (Auto) (0.0-0.1) K/uL Nucleated RBC % /100WBC Nucleated RBCs # K/uL VBG pH (7.31-7.41) VBG pCO2 (35-45) mmHG VBG pO2 (30-40) mmHG VBG HCO3 (22-30) mEq/L VBG Total CO2 (41-51) mmol/L VBG Base Excess (-3.0-3.0) Lactate (0.20-2.00) mmol/L Sodium 129 L (136-145) mmol/L Potassium 3.7 (3.5-5.1) mmol/L Chloride 93 L (98-107) mmol/L Carbon Dioxide 26.2 (21.0-32.0) mmol/L BUN 9 (7.0-18.0) mg/dL Creatinine 0.7 (0.6-1.0) mg/dL Est Cr Clr Drug Dosing 75.94 mL/min Estimated GFR (MDRD) > 60.0 ml/min Glucose 125 H (74-106) mg/dL Calcium 8.7 (8.5-10.1) mg/dL Total Bilirubin 0.4 (0.2-1.0) mg/dL AST 20 (15-37) IU/L ALT 33 (14-63) IU/L Alkaline Phosphatase 95 (46-116) U/L Total Protein 7.6 (6.4-8.2) g/dL Albumin 3.5 (3.4-5.0) g/dL Globulin 4.1 H (2.6-4.0) g/dL Albumin/Globulin Ratio 0.9 (0.9-1.6) Meds: Medications Discontinued Medications Generic Name Dose Route Start Last Admin Trade Name Freq PRN Reason Stop Dose Admin Albuterol/Ipratropium 3 ml 03/31/19 08:29 Duoneb 3.0-0.5 Mg/3 Ml NEB 03/31/19 08:30 ONETIME ONE Departure - Departure Time of Disposition: 10:15 Disposition: Refer to Observation Clinical Impression: Bronchitis - Discharge Information Referrals: Taco Esparza MD [Primary Care Provider] - Forms: ED Department Discharge Sepsis Event Note - Evaluation Sepsis Screening Result: No Definite Risk - Focused Exam Vital Signs: Vital Signs Temp Pulse Resp BP Pulse Ox 03/31/19 09:36 88 140/72 92 L 03/31/19 08:15 36.4 C 88 26 H 148/71 H 88 L Date Exam was Performed: 03/31/19 Time Exam was Performed: 10:13 - My Orders Last 24 Hours: My Active Orders 03/31/19 08:29 RT Aerosol Therapy [RC] ASDIRECTED 03/31/19 10:12 Admission Status [Patient Status] [ADT] Stat - Assessment/Plan Last 24 Hours: My Active Orders 03/31/19 08:29 RT Aerosol Therapy [RC] ASDIRECTED 03/31/19 10:12 Admission Status [Patient Status] [ADT] Stat
[2019-03-31 09:24] LABS: BLOOD UREA NITROGEN,BUN 9 mg/dL (7.0-18.0); CARBON DIOXIDE,CO2 26.2 mmol/L (21.0-32.0); CHLORIDE,CL 93 mmol/L (98-107); GLUCOSE RANDOM 125 mg/dL (74-106); POTASSIUM,K 3.7 mmol/L (3.5-5.1); SODIUM,NA 129 mmol/L (136-145)
--- NOTE | 2019-03-31 09:48 | CR ---
Chest: Portable view of the chest was obtained. Comparison: Prior chest x-ray of 03/07/19. Heart size is felt to be slightly enlarged. Lung markings are mildly increased which appear stable. No acute parenchymal change is identified. Bony structures are unremarkable. Impression: 1. Heart size slightly enlarged. 2. Nothing acute is otherwise appreciated on portable chest x-ray. Diagnostic code #2 This report was dictated in [place] Standard Time
[2019-03-31] MEDS ORDERED: Magnesium Sulfate/Water 2 GM in Premix Bag 1 BAG IV ONE (10:36)
[2019-03-31] MEDS ORDERED: Sodium Chloride 0.9% 2.5 ML Syringe FLUSH PRN (11:36)
[2019-03-31] MEDS ORDERED: Acetaminophen 325 MG Tab PO PRN (11:36)
[2019-03-31] MEDS ORDERED: Ondansetron 4 MG/2 ML SDV IVPUSH PRN (11:36)
[2019-03-31] MEDS: Albuterol/Ipratropium 3.0-0.5 MG/3 ML Neb Soln NEB SCH ×3 (13:24→21:39)
[2019-03-31] MEDS ORDERED: methylPREDNISolone Sodium Succinate 125 MG/2 ML SDV IVPUSH ONE (13:47)
[2019-03-31] MEDS ORDERED: Albuterol 0.083% 2.5 MG/3 ML Neb Soln NEB PRN (14:01)
--- NOTE | 2019-03-31 14:01 | PCM.HP.2 ---
H&P History of Present Illness - General Date of Service: 03/31/19 Admit Problem/Dx: Admission Diagnosis/Problem Admission Diagnosis/Problem Bronchitis Source of Information: Patient History Limitations: Reports: No Limitations - History of Present Illness Initial Comments - Free Text/Narative: This 63 year old female with pmh of HTN and hypothyroidism presented to the ED via EMS with complaints of worsening shortness of breath and wheezing. She reports she was seen on her PCP yesterday and diagnosed with pneumonia, she was given Levaquin. She said overnight the shortness of breath worsened and along with her cough that she wasn't able to sleep well. SHe overall has malaise. No fevers or chills, scant productive cough, significant wheezing noted and very short of breath even with talking. She reports she got a flu shot this year, no history of pneumonia vaccine. She denies smoking history, but was exposed to significant smoking as a young person. She denies vaping. Denies alcohol use or recreational drug use. In the ED CBC WNL, Hyponatremia noted 129. CXR shows mildly enlarged heart otherwise negative. She was treated with Duonebs in the ED along with Magnesium. She will be admitted for bronchitis and hypoxia. - Related Data Allergies/Adverse Reactions: Allergies Allergy/AdvReac Type Severity Reaction Status Date / Time pollen extracts Allergy Fever Verified 03/31/19 11:20 povidone-iodine Allergy Swelling Verified 03/31/19 11:20 [From Betadine] soap [From Betadine] Allergy Swelling Verified 03/31/19 11:20 Sulfa (Sulfonamide Allergy Rash Verified 03/31/19 11:20 Antibiotics) Home Medications: Home Meds Levothyroxine 175 mcg PO DAILY 12/10/14 [History] amLODIPine Besylate [Amlodipine Besylate] 10 mg PO DAILY 12/10/14 [History] Metoprolol Succinate 25 mg PO DAILY 06/25/18 [History] Albuterol Sulfate [Proair Hfa] 8.5 gm IH ASDIRECTED PRN 03/31/19 [History] Levofloxacin [Levaquin] 750 mg PO DAILY 03/31/19 [History] Past Medical History HEENT History: Reports: None Cardiovascular History: Reports: Hypertension Respiratory History: Reports: None Gastrointestinal History: Reports: None Genitourinary History: Reports: None 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 Denies: Diabetes, Type II Hematologic History: Reports: None Immunologic History: Reports: None Oncologic (Cancer) History: Reports: None Dermatologic History: Reports: None - Infectious Disease History Infectious Disease History: Reports: Chicken Pox, Measles - Past Surgical History Head Surgeries/Procedures: Reports: None HEENT Surgical History: Reports: None Cardiovascular Surgical History: Reports: None Respiratory Surgical History: Reports: None GI Surgical History: Reports: None Female Surgical History: Reports: Breast Reduction Endocrine Surgical History: Reports: None Musculoskeletal Surgical History: Reports: None Social & Family History - Family History Family Medical History: Noncontributory - Tobacco Use Smoking Status *Q: Never Smoker Second Hand Smoke Exposure: No - Caffeine Use Caffeine Use: Reports: None - Alcohol Use Alcohol Use History: No - Recreational Drug Use Recreational Drug Use: No H&P Review of Systems - Review of Systems: Review Of Systems: See Below General: Reports: Malaise, Weakness (generalized), Fatigue. Denies: Fever, Chills HEENT: Reports: No Symptoms. Denies: Headaches Pulmonary: Reports: Shortness of Breath, Cough, Sputum Cardiovascular: Reports: No Symptoms. Denies: Chest Pain Gastrointestinal: Reports: No Symptoms. Denies: Abdominal Pain Genitourinary: Reports: No Symptoms. Denies: Dysuria, Frequency, Burning Musculoskeletal: Reports: No Symptoms Skin: Reports: No Symptoms Neurological: Reports: No Symptoms Hematologic/Lymphatic: Reports: No Symptoms Exam - Exam Exam: See Below - Vital Signs Vital Signs: Last Vital Signs Temp 97.4 F 03/31/19 11:05 Pulse 84 03/31/19 11:05 Resp 20 03/31/19 11:05 BP 151/71 H 03/31/19 11:05 Pulse Ox 94 L 03/31/19 11:05 Weight: 151.228 kg - Exam Quality Assessment: Supplemental Oxygen General: Alert, Oriented, Cooperative HEENT: Conjunctiva Clear, Mucosa Moist & [place] Lungs: Decreased Breath Sounds, Rhonchi, Wheezing. No: Normal Respiratory Effort Cardiovascular: Regular Rate, Regular Rhythm GI/Abdominal Exam: Normal Bowel Sounds, Soft, Non-Tender Back Exam: Normal Inspection, Full Range of Motion Extremities: Normal Inspection, Normal Range of Motion Skin: Warm, Dry Neurological: Cranial Nerves Intact Neuro Extensive - Mental Status: Alert, Oriented x3 Psychiatric: Alert, Normal Affect, Normal Mood - Patient Data Lab Results Last 24 hrs: Laboratory Results - last 24 hr 03/31/19 03/31/19 03/31/19 Range/Units 08:51 08:51 08:51 WBC 8.95 (4.0-11.0) K/uL RBC 5.46 (4.30-5.90) M/uL Hgb 14.5 (12.0-16.0) g/dL Hct 42.9 (36.0-46.0) % MCV 78.6 L (80.0-98.0) fL MCH 26.6 L (27.0-32.0) pg MCHC 33.8 (31.0-37.0) g/dL RDW Std Deviation 41.9 (28.0-62.0) fl RDW Coeff of Rafael 15 (11.0-15.0) % Plt Count 256 (150-400) K/uL MPV 9.30 (7.40-12.00) fL Neut % (Auto) 69.0 (48.0-80.0) % Lymph % (Auto) 20.2 (16.0-40.0) % [place] % (Auto) 10.8 (0.0-15.0) % Eos % (Auto) 0.0 (0.0-7.0) % Baso % (Auto) 0.0 (0.0-1.5) % Neut # (Auto) 6.2 H (1.4-5.7) K/uL Lymph # (Auto) 1.8 (0.6-2.4) K/uL [place] # (Auto) 1.0 H (0.0-0.8) K/uL Eos # (Auto) 0.0 (0.0-0.7) K/uL Baso # (Auto) 0.0 (0.0-0.1) K/uL Nucleated RBC % 0.0 /100WBC Nucleated RBCs # 0 K/uL VBG pH 7.39 (7.31-7.41) VBG pCO2 45 (35-45) mmHG VBG pO2 43 H (30-40) mmHG VBG HCO3 27 (22-30) mEq/L VBG Total CO2 24 L (41-51) mmol/L VBG Base Excess 1.8 (-3.0-3.0) Lactate 1.1 (0.20-2.00) mmol/L Sodium (136-145) mmol/L Potassium (3.5-5.1) mmol/L Chloride (98-107) mmol/L Carbon Dioxide (21.0-32.0) mmol/L BUN (7.0-18.0) mg/dL Creatinine (0.6-1.0) mg/dL Est Cr Clr Drug Dosing mL/min Estimated GFR (MDRD) ml/min Glucose (74-106) mg/dL Calcium (8.5-10.1) mg/dL Total Bilirubin (0.2-1.0) mg/dL AST (15-37) IU/L ALT (14-63) IU/L Alkaline Phosphatase (46-116) U/L Troponin I (0.000-0.056) ng/mL Total Protein (6.4-8.2) g/dL Albumin (3.4-5.0) g/dL Globulin (2.6-4.0) g/dL Albumin/Globulin Ratio (0.9-1.6) 03/31/19 03/31/19 Range/Units 08:51 08:51 WBC (4.0-11.0) K/uL RBC (4.30-5.90) M/uL Hgb (12.0-16.0) g/dL Hct (36.0-46.0) % MCV (80.0-98.0) fL MCH (27.0-32.0) pg MCHC (31.0-37.0) g/dL RDW Std Deviation (28.0-62.0) fl RDW Coeff of Rafael (11.0-15.0) % Plt Count (150-400) K/uL MPV (7.40-12.00) fL Neut % (Auto) (48.0-80.0) % Lymph % (Auto) (16.0-40.0) % [place] % (Auto) (0.0-15.0) % Eos % (Auto) (0.0-7.0) % Baso % (Auto) (0.0-1.5) % Neut # (Auto) (1.4-5.7) K/uL Lymph # (Auto) (0.6-2.4) K/uL [place] # (Auto) (0.0-0.8) K/uL Eos # (Auto) (0.0-0.7) K/uL Baso # (Auto) (0.0-0.1) K/uL Nucleated RBC % /100WBC Nucleated RBCs # K/uL VBG pH (7.31-7.41) VBG pCO2 (35-45) mmHG VBG pO2 (30-40) mmHG VBG HCO3 (22-30) mEq/L VBG Total CO2 (41-51) mmol/L VBG Base Excess (-3.0-3.0) Lactate (0.20-2.00) mmol/L Sodium 129 L (136-145) mmol/L Potassium 3.7 (3.5-5.1) mmol/L Chloride 93 L (98-107) mmol/L Carbon Dioxide 26.2 (21.0-32.0) mmol/L BUN 9 (7.0-18.0) mg/dL Creatinine 0.7 (0.6-1.0) mg/dL Est Cr Clr Drug Dosing 75.94 mL/min Estimated GFR (MDRD) > 60.0 ml/min Glucose 125 H (74-106) mg/dL Calcium 8.7 (8.5-10.1) mg/dL Total Bilirubin 0.4 (0.2-1.0) mg/dL AST 20 (15-37) IU/L ALT 33 (14-63) IU/L Alkaline Phosphatase 95 (46-116) U/L Troponin I < 0.050 (0.000-0.056) ng/mL Total Protein 7.6 (6.4-8.2) g/dL Albumin 3.5 (3.4-5.0) g/dL Globulin 4.1 H (2.6-4.0) g/dL Albumin/Globulin Ratio 0.9 (0.9-1.6) Result Diagrams: 03/31/19 08:51 03/31/19 08:51 Sepsis Event Note - Evaluation Sepsis Screening Result: No Definite Risk - Focused Exam Vital Signs: Vital Signs Temp Pulse Resp BP Pulse Ox Pulse Ox 03/31/19 11:05 97.4 F 84 20 151/71 H 94 L 94 L 03/31/19 09:36 88 140/72 92 L 03/31/19 08:15 97.5 F 88 26 H 148/71 H 88 L Date Exam was Performed: 03/31/19 Time Exam was Performed: 20:08 - Problem List (1) Bronchitis SNOMED Code(s): 22521355 ICD Code: J40 - BRONCHITIS, NOT SPECIFIED ACUTE OR CHRONIC Status: Acute Current Visit: Yes (2) CAP (community acquired pneumonia) SNOMED Code(s): 664079272 ICD Code: J18.9 - PNEUMONIA, UNSPECIFIED ORGANISM Status: Acute Current Visit: Yes (3) HTN (hypertension) SNOMED Code(s): 70392069 ICD Code: I10 - ESSENTIAL (PRIMARY) HYPERTENSION Status: Chronic Current Visit: Yes Qualifiers: Hypertension type: essential hypertension Qualified Code(s): I10 - Essential (primary) hypertension (4) Obesity SNOMED Code(s): 459868473, 037451534 ICD Code: E66.9 - OBESITY, UNSPECIFIED Status: Chronic Current Visit: Yes Problem List Initiated/Reviewed/Updated: Yes Orders Last 24hrs: Active Orders 24 hr Category Date Time Status Admission Status [Patient Status] [ADT] Stat ADT 03/31/19 10:15 Active EKG 12 Lead [EKG Documentation Completion] [RC] STAT Care 03/31/19 10:16 Active Intake and Output [RC] Q12H Care 03/31/19 11:37 Active Oxygen Therapy [RC] PRN Care 03/31/19 11:36 Active RT Aerosol Therapy [RC] ASDIRECTED Care 03/31/19 08:29 Active RT Aerosol Therapy [RC] ASDIRECTED Care 03/31/19 11:37 Active Telemetry Monitoring [Cardiac Monitoring] [RC] . Care 03/31/19 11:16 Active DIRECTED Up With Assistance [RC] ASDIRECTED Care 03/31/19 11:36 Active VTE/DVT Education [RC] PER UNIT ROUTINE Care 03/31/19 11:36 Active Vital Signs [RC] Q4H Care 03/31/19 11:36 Active Heart Healthy Diet [DIET] Diet 03/31/19 Lunch Active Acetaminophen [Tylenol] Med 03/31/19 11:36 Active 650 mg PO Q4H PRN Albuterol/Ipratropium [DuoNeb 3.0-0.5 MG/3 ML] Med 03/31/19 14:00 Active 3 ml NEB Q4HRRT Levofloxacin Med 03/31/19 17:00 Ordered 750 mg PO DAILY@1700 Levothyroxine Med 04/01/19 07:00 Ordered 175 mcg PO DAILY@0700 Metoprolol Succinate [Toprol XL] Med 04/01/19 09:00 Ordered 25 mg PO DAILY Ondansetron [Zofran] Med 03/31/19 11:36 Active 4 mg IVPUSH Q4H PRN Sodium Chloride 0.9% [Saline Flush] Med 03/31/19 11:36 Active 2.5 ml FLUSH ASDIRECTED PRN amLODIPine Besylate Med 04/01/19 09:00 Ordered 10 mg PO DAILY Saline Lock Insert [OM.PC] Routine Oth 03/31/19 11:36 Ordered Resuscitation Status Routine Resus Stat 03/31/19 11:36 Ordered Medication Orders Acetaminophen (Tylenol) 650 mg PO Q4H PRN PRN Reason: Pain (Mild 1-3)/fever Albuterol/Ipratropium (Duoneb 3.0-0.5 Mg/3 Ml) 3 ml NEB Q4HRRT ANILA Last Admin: 03/31/19 13:24 Dose: 3 ml Levothyroxine Sodium (Levothyroxine) 175 mcg PO DAILY@0700 [facility] Metoprolol Succinate (Toprol Xl) 25 mg PO DAILY [facility] Non-Formulary Medication (Amlodipine Besylate) 10 mg PO DAILY [facility] Non-Formulary Medication (Levofloxacin) 750 mg PO DAILY@1700 [facility] Ondansetron HCl (Zofran) 4 mg IVPUSH Q4H PRN PRN Reason: Nausea Sodium Chloride (Saline Flush) 2.5 ml FLUSH ASDIRECTED PRN PRN Reason: Keep Vein Open Assessment/Plan Comment:: THis 63 year old female admitted with bronchitis, CAP and hypoxia 1. CAP/bronchitis: Continue Levaquin PO, no obvious consolidation on CXR. Add Solumedrol due to significant wheezing on exam. Duonebs and IS. Could be cause of hyponatremia, recheck in am. Continue oxygen as needed to keep sats above 90% . 2. HTN: Stable, continue Amlodipine and Metoprolol. VTE prophylaxis: SCDs and ambulation.
[2019-03-31] MEDS: Levothyroxine 125 MCG Tab PO SCH (14:30)
[2019-03-31] MEDS: Levofloxacin 250 MG Tab PO SCH (17:05)
[2019-03-31] MEDS ORDERED: Sodium Chloride 0.9% 1,000 ML IV SCH (20:15)
[2019-03-31 20:27] LABS: HEMOGLOBIN A1C 6.3 % (4.5-6.2)
[2019-03-31] MEDS ORDERED: methylPREDNISolone Sodium Succinate 40 MG/1 ML SDV IVPUSH SCH (21:30)
[2019-03-31] MEDS: methylPREDNISolone Sodium Succinate 40 MG/1 ML SDV IVPUSH SCH (22:28)
[2019-04-01] MEDS: Codeine/guaiFENesin 100-10 MG/5 ML Syrup 5 ML Cup PO PRN (00:18)
[2019-04-01] MEDS: Albuterol/Ipratropium 3.0-0.5 MG/3 ML Neb Soln NEB SCH ×6 (02:15→21:21)
[2019-04-01] MEDS: methylPREDNISolone Sodium Succinate 40 MG/1 ML SDV IVPUSH SCH ×3 (04:45→21:30)
[2019-04-01 06:17] LABS: BLOOD UREA NITROGEN,BUN 10 mg/dL (7.0-18.0); CARBON DIOXIDE,CO2 26.3 mmol/L (21.0-32.0); CHLORIDE,CL 88 mmol/L (98-107); GLUCOSE RANDOM 176 mg/dL (74-106); POTASSIUM,K 4.3 mmol/L (3.5-5.1); SODIUM,NA 123 mmol/L (136-145)
[2019-04-01] MEDS: Levothyroxine 50 MCG Tab PO SCH (06:34)
[2019-04-01] MEDS: Levothyroxine 125 MCG Tab PO SCH (06:34)
[2019-04-01] MEDS: Insulin Aspart 100 Units/ML 3 ML Pen SUBCUT SCH ×3 (08:16→17:59)
[2019-04-01] MEDS: Metoprolol Succinate 25 MG Tab.ER PO SCH (08:17)
[2019-04-01] MEDS: amLODIPine 5 MG Tab PO SCH (08:17)
--- NOTE | 2019-04-01 09:37 | PCM.PN ---
- General Info Date of Service: 04/01/19 Admission Dx/Problem (Free Text): Admission Diagnosis/Problem Admission Diagnosis/Problem Bronchitis Subjective Update: feeling somewhat improved, needing increased oxygen overnight, up to 4 L NC. No chest pain. SOB is improved, coughing and clearing sputum well. No fevers. Functional Status: Reports: Pain Controlled, Tolerating Diet, Ambulating, Urinating - Review of Systems General: Reports: Malaise (improved though since admission). Denies: Fever HEENT: Reports: No Symptoms Pulmonary: Reports: Shortness of Breath, Cough, Sputum, Wheezing. Denies: Pleuritic Chest Pain Cardiovascular: Reports: Edema. Denies: Chest Pain, Palpitations, Lightheadedness Gastrointestinal: Reports: No Symptoms. Denies: Abdominal Pain, Nausea, Vomiting Genitourinary: Reports: No Symptoms. Denies: Dysuria, Frequency, Burning Musculoskeletal: Reports: No Symptoms Skin: Reports: No Symptoms Neurological: Reports: No Symptoms Psychiatric: Reports: No Symptoms - Patient Data Vitals - Most Recent: Last Vital Signs Temp 97.1 F 04/01/19 09:04 Pulse 95 04/01/19 09:04 Resp 16 04/01/19 09:04 BP 138/63 04/01/19 09:04 Pulse Ox 93 L 04/01/19 09:04 Weight - Most Recent: 151.228 kg I&O - Last 24 Hours: Intake & Output 03/31/19 04/01/19 04/01/19 22:59 06:59 14:59 Intake Total 1500 2250 Output Total 1150 Balance 1500 1100 Lab Results Last 24 Hours: Laboratory Results - last 24 hr 03/31/19 03/31/19 03/31/19 Range/Units 08:51 08:51 20:51 WBC (4.0-11.0) K/uL RBC (4.30-5.90) M/uL Hgb (12.0-16.0) g/dL Hct (36.0-46.0) % MCV (80.0-98.0) fL MCH (27.0-32.0) pg MCHC (31.0-37.0) g/dL RDW Std Deviation (28.0-62.0) fl RDW Coeff of Rafael (11.0-15.0) % Plt Count (150-400) K/uL MPV (7.40-12.00) fL Neut % (Auto) (48.0-80.0) % Lymph % (Auto) (16.0-40.0) % [place] % (Auto) (0.0-15.0) % Eos % (Auto) (0.0-7.0) % Baso % (Auto) (0.0-1.5) % Neut # (Auto) (1.4-5.7) K/uL Lymph # (Auto) (0.6-2.4) K/uL [place] # (Auto) (0.0-0.8) K/uL Eos # (Auto) (0.0-0.7) K/uL Baso # (Auto) (0.0-0.1) K/uL Nucleated RBC % /100WBC Nucleated RBCs # K/uL Sodium (136-145) mmol/L Potassium (3.5-5.1) mmol/L Chloride (98-107) mmol/L Carbon Dioxide (21.0-32.0) mmol/L BUN (7.0-18.0) mg/dL Creatinine (0.6-1.0) mg/dL Est Cr Clr Drug Dosing mL/min Estimated GFR (MDRD) ml/min Glucose (74-106) mg/dL POC Glucose 196 H (60-110) mg/dL Hemoglobin A1c 6.3 H (4.5-6.2) % Calcium (8.5-10.1) mg/dL Phosphorus (2.6-4.7) mg/dL Magnesium (1.8-2.4) mg/dL Troponin I < 0.050 (0.000-0.056) ng/mL 04/01/19 04/01/19 04/01/19 Range/Units 05:52 05:52 06:37 WBC 8.04 (4.0-11.0) K/uL RBC 5.04 (4.30-5.90) M/uL Hgb 13.5 (12.0-16.0) g/dL Hct 38.9 (36.0-46.0) % MCV 77.2 L (80.0-98.0) fL MCH 26.8 L (27.0-32.0) pg MCHC 34.7 (31.0-37.0) g/dL RDW Std Deviation 39.4 (28.0-62.0) fl RDW Coeff of Rafael 14 (11.0-15.0) % Plt Count 266 (150-400) K/uL MPV 9.30 (7.40-12.00) fL Neut % (Auto) 89.0 H (48.0-80.0) % Lymph % (Auto) 9.0 L (16.0-40.0) % [place] % (Auto) 2.0 (0.0-15.0) % Eos % (Auto) 0.0 (0.0-7.0) % Baso % (Auto) 0.0 (0.0-1.5) % Neut # (Auto) 7.2 H (1.4-5.7) K/uL Lymph # (Auto) 0.7 (0.6-2.4) K/uL [place] # (Auto) 0.2 (0.0-0.8) K/uL Eos # (Auto) 0.0 (0.0-0.7) K/uL Baso # (Auto) 0.0 (0.0-0.1) K/uL Nucleated RBC % 0.0 /100WBC Nucleated RBCs # 0 K/uL Sodium 123 L (136-145) mmol/L Potassium 4.3 (3.5-5.1) mmol/L Chloride 88 L (98-107) mmol/L Carbon Dioxide 26.3 (21.0-32.0) mmol/L BUN 10 (7.0-18.0) mg/dL Creatinine 0.6 (0.6-1.0) mg/dL Est Cr Clr Drug Dosing 88.60 mL/min Estimated GFR (MDRD) > 60.0 ml/min Glucose 176 H (74-106) mg/dL POC Glucose 174 H (60-110) mg/dL Hemoglobin A1c (4.5-6.2) % Calcium 8.1 L (8.5-10.1) mg/dL Phosphorus 3.2 (2.6-4.7) mg/dL Magnesium 2.1 (1.8-2.4) mg/dL Troponin I (0.000-0.056) ng/mL Med Orders - Current: Current Medications Acetaminophen (Tylenol) 650 mg PO Q4H PRN PRN Reason: Pain (Mild 1-3)/fever Last Admin: 04/01/19 00:18 Dose: 650 mg Albuterol (Proventil Neb Soln) 2.5 mg NEB Q2H PRN PRN Reason: Shortness Of Breath/wheezing Albuterol/Ipratropium (Duoneb 3.0-0.5 Mg/3 Ml) 3 ml NEB Q4HRRT [facility] Last Admin: 04/01/19 06:06 Dose: 3 ml Amlodipine Besylate (Norvasc) 10 mg PO DAILY [facility] Last Admin: 04/01/19 08:17 Dose: 10 mg Guaifenesin/Codeine Phosphate (Robitussin Ac) 5 ml PO Q6H PRN PRN Reason: Cough Last Admin: 04/01/19 00:18 Dose: 5 ml Insulin Aspart (Novolog) 0 unit SUBCUT TIDAC [facility]; Protocol Last Admin: 04/01/19 08:16 Dose: 2 units Levofloxacin (Levaquin) 750 mg PO DAILY@1700 [facility] Last Admin: 03/31/19 17:05 Dose: 750 mg Levothyroxine Sodium (Levothyroxine) 125 mcg PO ACBREAKFAST [facility] Last Admin: 04/01/19 06:34 Dose: 125 mcg Levothyroxine Sodium (Synthroid) 50 mcg PO ACBREAKFAST [facility] Last Admin: 04/01/19 06:34 Dose: 50 mcg Methylprednisolone Sodium Succinate (Solu-Medrol) 40 mg IVPUSH Q8H [facility] Last Admin: 04/01/19 04:45 Dose: 40 mg Metoprolol Succinate (Toprol Xl) 25 mg PO DAILY [facility] Last Admin: 04/01/19 08:17 Dose: 25 mg Ondansetron HCl (Zofran) 4 mg IVPUSH Q4H PRN PRN Reason: Nausea Sodium Chloride (Saline Flush) 2.5 ml FLUSH ASDIRECTED PRN PRN Reason: Keep Vein Open Discontinued Medications Albuterol/Ipratropium (Duoneb 3.0-0.5 Mg/3 Ml) 3 ml NEB ONETIME ONE Stop: 03/31/19 08:30 Last Admin: 03/31/19 10:20 Dose: 3 ml Magnesium Sulfate 2 gm/ Premix 50 mls @ 50 mls/hr IV ONETIME ONE Stop: 03/31/19 11:35 Last Admin: 03/31/19 10:43 Dose: 50 mls/hr Sodium Chloride (Normal Saline) 1,000 mls @ 100 mls/hr IV ASDIRECTED [facility] Last Infusion: 04/01/19 08:18 Dose: Infused Methylprednisolone Sodium Succinate (Solu-Medrol) 125 mg IVPUSH ONETIME ONE Stop: 03/31/19 13:48 Last Admin: 03/31/19 14:31 Dose: 125 mg Methylprednisolone Sodium Succinate (Solu-Medrol) 40 mg IVPUSH Q12H ANILA - Exam Quality Assessment: Supplemental Oxygen, DVT Prophylaxis General: Alert, Oriented, Cooperative, No Acute Distress Lungs: Decreased Breath Sounds, Crackles (fine to bases), Wheezing (improved from yesterday). No: Normal Respiratory Effort (dyspnea with speech and exertion) Cardiovascular: Regular Rate, Regular Rhythm GI/Abdominal Exam: Normal Bowel Sounds, Soft, Non-Tender Extremities: Normal Inspection, Normal Range of Motion, Pedal Edema (+1 pitting edema BLE) Wound/Incisions: Healing Well Neurological: No New Focal Deficit Psy/Mental Status: Alert, Normal Affect, Normal Mood Sepsis Event Note - Evaluation Sepsis Screening Result: No Definite Risk - Focused Exam Vital Signs: Vital Signs Temp Pulse Pulse Resp BP BP Pulse Ox 04/01/19 09:04 97.1 F 95 16 138/63 93 L 04/01/19 08:17 94 134/72 04/01/19 06:00 97 F 103 H 18 138/78 94 L 04/01/19 03:35 36.4 F L 87 20 128/75 92 L 03/31/19 23:35 97.3 F 89 18 178/76 H 91 L Date Exam was Performed: 04/01/19 Time Exam was Performed: 11:46 - Problem List & Annotations (1) Bronchitis SNOMED Code(s): 31589628 Code(s): J40 - BRONCHITIS, NOT SPECIFIED ACUTE OR CHRONIC Status: Acute Current Visit: Yes (2) CAP (community acquired pneumonia) SNOMED Code(s): 844227703 Code(s): J18.9 - PNEUMONIA, UNSPECIFIED ORGANISM Status: Acute Current Visit: Yes (3) HTN (hypertension) SNOMED Code(s): 62836419 Code(s): I10 - ESSENTIAL (PRIMARY) HYPERTENSION Status: Chronic Current Visit: Yes Qualifiers: Hypertension type: essential hypertension Qualified Code(s): I10 - Essential (primary) hypertension (4) Obesity SNOMED Code(s): 269122921, 725032580 Code(s): E66.9 - OBESITY, UNSPECIFIED Status: Chronic Current Visit: Yes - Problem List Review Problem List Initiated/Reviewed/Updated: Yes - My Orders Last 24 Hours: My Active Orders 03/31/19 11:16 Telemetry Monitoring [Cardiac Monitoring] [RC] Q8H 03/31/19 11:36 Oxygen Therapy [RC] PRN Up With Assistance [RC] ASDIRECTED VTE/DVT Education [RC] PER UNIT ROUTINE Vital Signs [RC] Q4H Acetaminophen [Tylenol] 650 mg PO Q4H PRN Ondansetron [Zofran] 4 mg IVPUSH Q4H PRN Sodium Chloride 0.9% [Saline Flush] 2.5 ml FLUSH ASDIRECTED PRN Saline Lock Insert [OM.PC] Routine Resuscitation Status Routine 03/31/19 11:37 Intake and Output [RC] Q12H 03/31/19 14:00 Albuterol/Ipratropium [DuoNeb 3.0-0.5 MG/3 ML] 3 ml NEB Q4HRRT 03/31/19 14:01 Albuterol [Proventil Neb Soln] 2.5 mg NEB Q2H PRN 03/31/19 14:02 RT Aerosol Therapy [RC] ASDIRECTED 03/31/19 14:03 Codeine/guaiFENesin [Robitussin AC] 5 ml PO Q6H PRN 03/31/19 17:00 levoFLOXacin [Levaquin] 750 mg PO DAILY@1700 03/31/19 17:16 Communication Order [RC] PER UNIT ROUTINE 03/31/19 21:30 methylPREDNISolone Sod Succ [Solu-MEDROL] 40 mg IVPUSH Q8H 03/31/19 Lunch Heart Healthy Diet [DIET] 04/01/19 07:30 Levothyroxine [Synthroid] 50 mcg PO ACBREAKFAST 04/01/19 08:58 Paper Sorter Discontinue [Cardiac Monitoring Discontinue] [RC] Click to Edit 04/01/19 09:00 Metoprolol Succinate [Toprol XL] 25 mg PO DAILY amLODIPine [Norvasc] 10 mg PO DAILY 04/01/19 14:00 SODIUM,NA [CHEM] Timed 04/02/19 05:11 BMP [BASIC METABOLIC PANEL,BMP] [CHEM] AM CBC WITH AUTO DIFF [HEME] AM - Plan Plan:: THis 63 year old female admitted with bronchitis, CAP and hypoxia 1. CAP/bronchitis: Continue Levaquin PO, no obvious consolidation on CXR. Wheezing improving continue Solumedrol 40 Q8hr for now. Duonebs and IS. Continue oxygen as needed to keep sats above 90%. 2. Hyponatremia: May be related to hypervolemia. Stop IVFs, give Lasix and fluid restrict to 2 L today. Drank nearly 4 L yesterday of fluids. Recheck Na this afternoon. Obtain ECHo due to edema. Lasix 20 mg IV now. 3. HTN: Stable, continue Amlodipine and Metoprolol. VTE prophylaxis: Lovenox. Dispo: 1-2 days pending improvement
[2019-04-01] MEDS ORDERED: Furosemide 20 MG/2 ML VIAL IVPUSH ONE (11:24)
[2019-04-01] MEDS: Levofloxacin 250 MG Tab PO SCH (16:33)
[2019-04-02] MEDS: Albuterol/Ipratropium 3.0-0.5 MG/3 ML Neb Soln NEB SCH ×6 (02:57→21:30)
[2019-04-02] MEDS: methylPREDNISolone Sodium Succinate 40 MG/1 ML SDV IVPUSH SCH ×4 (06:32→23:44)
[2019-04-02] MEDS: Levothyroxine 50 MCG Tab PO SCH (06:32)
[2019-04-02] MEDS: Levothyroxine 125 MCG Tab PO SCH (06:32)
[2019-04-02 06:34] LABS: BLOOD UREA NITROGEN,BUN 17 mg/dL (7.0-18.0); CHLORIDE,CL 91 mmol/L (98-107); GLUCOSE RANDOM 181 mg/dL (74-106); POTASSIUM,K 4.8 mmol/L (3.5-5.1); SODIUM,NA 125 mmol/L (136-145)
[2019-04-02] MEDS: Insulin Aspart 100 Units/ML 3 ML Pen SUBCUT SCH ×3 (08:00→17:29)
[2019-04-02] MEDS: amLODIPine 5 MG Tab PO SCH (08:45)
[2019-04-02] MEDS: Metoprolol Succinate 25 MG Tab.ER PO SCH (08:45)
[2019-04-02] MEDS ORDERED: Furosemide 40 MG/4 ML VIAL IVPUSH ONE (09:54)
[2019-04-02] MEDS: Codeine/guaiFENesin 100-10 MG/5 ML Syrup 5 ML Cup PO PRN (14:54)
[2019-04-02] MEDS ORDERED: Sodium Chloride 0.9% 500 ML IV ONE (16:39)
[2019-04-02] MEDS: Levofloxacin 250 MG Tab PO SCH (17:01)
--- NOTE | 2019-04-02 20:04 | PCM.PN ---
<Justin Mckee - Last Filed: 04/02/19 20:01> - General Info Date of Service: 04/02/19 Subjective Update: States feeling tired ; +mildly productive cough but states she is improving; but needing o2 Functional Status: Reports: Pain Controlled - Review of Systems General: Denies: Fever, Weakness HEENT: Reports: No Symptoms Pulmonary: Reports: Cough, Sputum, Wheezing. Denies: Shortness of Breath, Pleuritic Chest Pain Cardiovascular: Reports: Edema. Denies: Chest Pain, Palpitations, Dyspnea on Exertion Gastrointestinal: Denies: Abdominal Pain, Constipation, Diarrhea, Nausea, Vomiting Genitourinary: Reports: No Symptoms Musculoskeletal: Reports: No Symptoms Neurological: Reports: No Symptoms Psychiatric: Reports: No Symptoms - Patient Data Vitals - Most Recent: Last Vital Signs Temp 96.7 F 04/02/19 19:00 Pulse 93 04/02/19 19:00 Resp 20 04/02/19 19:00 BP 138/75 04/02/19 19:00 Pulse Ox 93 L 04/02/19 19:00 Weight - Most Recent: 152.2 kg I&O - Last 24 Hours: Intake & Output 04/02/19 04/02/19 04/02/19 06:59 14:59 22:59 Intake Total 1000 1050 Output Total 1850 1600 Balance -850 -550 Lab Results Last 24 Hours: Laboratory Results - last 24 hr 04/02/19 04/02/19 04/02/19 Range/Units 06:08 06:08 06:08 WBC 17.28 H (4.0-11.0) K/uL RBC 5.04 (4.30-5.90) M/uL Hgb 13.4 (12.0-16.0) g/dL Hct 38.9 (36.0-46.0) % MCV 77.2 L (80.0-98.0) fL MCH 26.6 L (27.0-32.0) pg MCHC 34.4 (31.0-37.0) g/dL RDW Std Deviation 40.5 (28.0-62.0) fl RDW Coeff of Rafael 14 (11.0-15.0) % Plt Count 297 (150-400) K/uL MPV 9.70 (7.40-12.00) fL Neut % (Auto) 87.5 H (48.0-80.0) % Lymph % (Auto) 6.3 L (16.0-40.0) % Monroe % (Auto) 6.1 (0.0-15.0) % Eos % (Auto) 0.0 (0.0-7.0) % Baso % (Auto) 0.1 (0.0-1.5) % Neut # (Auto) 15.1 H (1.4-5.7) K/uL Lymph # (Auto) 1.1 (0.6-2.4) K/uL Monroe # (Auto) 1.1 H (0.0-0.8) K/uL Eos # (Auto) 0.0 (0.0-0.7) K/uL Baso # (Auto) 0.0 (0.0-0.1) K/uL Nucleated RBC % 0.0 /100WBC Nucleated RBCs # 0 K/uL Sodium 125 L (136-145) mmol/L Potassium 4.8 (3.5-5.1) mmol/L Chloride 91 L (98-107) mmol/L Carbon Dioxide 28.0 (21.0-32.0) mmol/L BUN 17 (7.0-18.0) mg/dL Creatinine 0.7 (0.6-1.0) mg/dL Est Cr Clr Drug Dosing 75.94 mL/min Estimated GFR (MDRD) > 60.0 ml/min Glucose 181 H (74-106) mg/dL POC Glucose (60-110) mg/dL Calcium 8.5 (8.5-10.1) mg/dL TSH 3rd Generation 0.62 (0.36-3.74) uIU/mL Ur Random Sodium (40.0-220.0) mmol/L Ur Random Potassium mmol/L Ur Random Chloride mmol/L 04/02/19 04/02/19 04/02/19 Range/Units 06:35 10:55 12:21 WBC (4.0-11.0) K/uL RBC (4.30-5.90) M/uL Hgb (12.0-16.0) g/dL Hct (36.0-46.0) % MCV (80.0-98.0) fL MCH (27.0-32.0) pg MCHC (31.0-37.0) g/dL RDW Std Deviation (28.0-62.0) fl RDW Coeff of Rafael (11.0-15.0) % Plt Count (150-400) K/uL MPV (7.40-12.00) fL Neut % (Auto) (48.0-80.0) % Lymph % (Auto) (16.0-40.0) % Monroe % (Auto) (0.0-15.0) % Eos % (Auto) (0.0-7.0) % Baso % (Auto) (0.0-1.5) % Neut # (Auto) (1.4-5.7) K/uL Lymph # (Auto) (0.6-2.4) K/uL Monroe # (Auto) (0.0-0.8) K/uL Eos # (Auto) (0.0-0.7) K/uL Baso # (Auto) (0.0-0.1) K/uL Nucleated RBC % /100WBC Nucleated RBCs # K/uL Sodium (136-145) mmol/L Potassium (3.5-5.1) mmol/L Chloride (98-107) mmol/L Carbon Dioxide (21.0-32.0) mmol/L BUN (7.0-18.0) mg/dL Creatinine (0.6-1.0) mg/dL Est Cr Clr Drug Dosing mL/min Estimated GFR (MDRD) ml/min Glucose (74-106) mg/dL POC Glucose 174 H 159 H (60-110) mg/dL Calcium (8.5-10.1) mg/dL TSH 3rd Generation (0.36-3.74) uIU/mL Ur Random Sodium 16.0 L (40.0-220.0) mmol/L Ur Random Potassium 20.2 mmol/L Ur Random Chloride 54 mmol/L 04/02/19 Range/Units 17:26 WBC (4.0-11.0) K/uL RBC (4.30-5.90) M/uL Hgb (12.0-16.0) g/dL Hct (36.0-46.0) % MCV (80.0-98.0) fL MCH (27.0-32.0) pg MCHC (31.0-37.0) g/dL RDW Std Deviation (28.0-62.0) fl RDW Coeff of Rafael (11.0-15.0) % Plt Count (150-400) K/uL MPV (7.40-12.00) fL Neut % (Auto) (48.0-80.0) % Lymph % (Auto) (16.0-40.0) % Monroe % (Auto) (0.0-15.0) % Eos % (Auto) (0.0-7.0) % Baso % (Auto) (0.0-1.5) % Neut # (Auto) (1.4-5.7) K/uL Lymph # (Auto) (0.6-2.4) K/uL Monroe # (Auto) (0.0-0.8) K/uL Eos # (Auto) (0.0-0.7) K/uL Baso # (Auto) (0.0-0.1) K/uL Nucleated RBC % /100WBC Nucleated RBCs # K/uL Sodium (136-145) mmol/L Potassium (3.5-5.1) mmol/L Chloride (98-107) mmol/L Carbon Dioxide (21.0-32.0) mmol/L BUN (7.0-18.0) mg/dL Creatinine (0.6-1.0) mg/dL Est Cr Clr Drug Dosing mL/min Estimated GFR (MDRD) ml/min Glucose (74-106) mg/dL POC Glucose 178 H (60-110) mg/dL Calcium (8.5-10.1) mg/dL TSH 3rd Generation (0.36-3.74) uIU/mL Ur Random Sodium (40.0-220.0) mmol/L Ur Random Potassium mmol/L Ur Random Chloride mmol/L Med Orders - Current: Current Medications Acetaminophen (Tylenol) 650 mg PO Q4H PRN PRN Reason: Pain (Mild 1-3)/fever Last Admin: 04/01/19 00:18 Dose: 650 mg Albuterol (Proventil Neb Soln) 2.5 mg NEB Q2H PRN PRN Reason: Shortness Of Breath/wheezing Albuterol/Ipratropium (Duoneb 3.0-0.5 Mg/3 Ml) 3 ml NEB Q4HRRT [facility] Last Admin: 04/02/19 18:18 Dose: 3 ml Amlodipine Besylate (Norvasc) 10 mg PO DAILY [facility] Last Admin: 04/02/19 08:45 Dose: 10 mg Guaifenesin/Codeine Phosphate (Robitussin Ac) 5 ml PO Q6H PRN PRN Reason: Cough Last Admin: 04/02/19 14:54 Dose: 5 ml Insulin Aspart (Novolog) 0 unit SUBCUT TIDAC [facility]; Protocol Levofloxacin (Levaquin) 750 mg PO DAILY@1700 [facility] Last Admin: 04/02/19 17:01 Dose: 750 mg Levothyroxine Sodium (Levothyroxine) 125 mcg PO ACBREAKFAST [facility] Last Admin: 04/02/19 06:32 Dose: 125 mcg Levothyroxine Sodium (Synthroid) 50 mcg PO ACBREAKFAST [facility] Last Admin: 04/02/19 06:32 Dose: 50 mcg Methylprednisolone Sodium Succinate (Solu-Medrol) 40 mg IVPUSH Q12H [facility] Last Admin: 04/02/19 10:17 Dose: 40 mg Metoprolol Succinate (Toprol Xl) 25 mg PO DAILY [facility] Last Admin: 04/02/19 08:45 Dose: 25 mg Ondansetron HCl (Zofran) 4 mg IVPUSH Q4H PRN PRN Reason: Nausea Sodium Chloride (Saline Flush) 2.5 ml FLUSH ASDIRECTED PRN PRN Reason: Keep Vein Open Discontinued Medications Albuterol/Ipratropium (Duoneb 3.0-0.5 Mg/3 Ml) 3 ml NEB ONETIME ONE Stop: 03/31/19 08:30 Last Admin: 03/31/19 10:20 Dose: 3 ml Furosemide (Lasix) 20 mg IVPUSH NOW ONE Stop: 04/01/19 11:25 Last Admin: 04/01/19 11:41 Dose: 20 mg Furosemide (Lasix) 40 mg IVPUSH NOW ONE Stop: 04/02/19 09:55 Last Admin: 04/02/19 10:17 Dose: 40 mg Magnesium Sulfate 2 gm/ Premix 50 mls @ 50 mls/hr IV ONETIME ONE Stop: 03/31/19 11:35 Last Admin: 03/31/19 10:43 Dose: 50 mls/hr Sodium Chloride (Normal Saline) 1,000 mls @ 100 mls/hr IV ASDIRECTED [facility] Last Infusion: 04/01/19 08:18 Dose: Infused Sodium Chloride (Normal Saline) 500 mls @ 500 mls/hr IV STAT ONE Stop: 04/02/19 17:38 Last Admin: 04/02/19 17:08 Dose: 500 mls/hr Insulin Aspart (Novolog) 0 unit SUBCUT TIDAC [facility]; Protocol Last Admin: 04/02/19 17:29 Dose: 2 units Methylprednisolone Sodium Succinate (Solu-Medrol) 125 mg IVPUSH ONETIME ONE Stop: 03/31/19 13:48 Last Admin: 03/31/19 14:31 Dose: 125 mg Methylprednisolone Sodium Succinate (Solu-Medrol) 40 mg IVPUSH Q12H [facility] Methylprednisolone Sodium Succinate (Solu-Medrol) 40 mg IVPUSH Q8H [facility] Last Admin: 04/02/19 06:32 Dose: 40 mg - Exam Quality Assessment: Supplemental Oxygen General: Alert, Oriented, Cooperative, No Acute Distress HEENT: EOMI, Mucous Membr. Moist/[place] Neck: Supple Lungs: Wheezing Cardiovascular: Regular Rate, Regular Rhythm GI/Abdominal Exam: Soft, Non-Tender Back Exam: Full Range of Motion Extremities: Pedal Edema Wound/Incisions: Healing Well Psy/Mental Status: Alert, Normal Affect, Normal Mood Sepsis Event Note - Evaluation Sepsis Screening Result: Sepsis Risk - Focused Exam Vital Signs: Vital Signs Temp Pulse Pulse Resp BP BP Pulse Ox 04/02/19 19:00 96.7 F 93 20 138/75 93 L 04/02/19 15:46 97.5 F 98 20 121/58 L 92 L 04/02/19 13:00 04/02/19 12:25 97.3 F 93 20 136/72 93 L 04/02/19 08:50 94 L 04/02/19 08:45 90 143/74 H Pulse Ox 04/02/19 19:00 04/02/19 15:46 04/02/19 13:00 93 L 04/02/19 12:25 04/02/19 08:50 04/02/19 08:45 Date Exam was Performed: 04/02/19 Time Exam was Performed: 20:01 - Problem List Review Problem List Initiated/Reviewed/Updated: Yes - My Orders Last 24 Hours: My Active Orders 04/02/19 10:00 methylPREDNISolone Sod Succ [Solu-MEDROL] 40 mg IVPUSH Q12H 04/02/19 18:24 Accu Check [Blood Glucose Check, Bedside] [RC] TIDMEALS 04/03/19 07:30 Insulin Aspart [NovoLOG] See Protocol SUBCUT TIDAC - Plan Plan:: THis 63 year old female admitted with bronchitis, CAP and hypoxia 1. CAP/bronchitis: Continue Levaquin PO, no obvious consolidation on CXR. Wheezing improving continue Solumedrol 40 Q12hr for now. Duonebs and IS. Continue oxygen as needed to keep sats above 90%; currently at 1.5 Liters (was at 4) 2. Hyponatremia: May be related to hypervolemia. Stop IVFs, give Lasix and fluid restrict to 1.5 L today. Drank nearly 4 L 2-days prior of fluids. Recheck Na this afternoon. Obtain ECHo due to edema. Lasix 40 mg IV now. 3. HTN: Stable, continue Amlodipine and Metoprolol. VTE prophylaxis: Lovenox. <Summer Caldwell - Last Filed: 04/04/19 20:59> - Patient Data Vitals - Most Recent: Last Vital Signs Temp 36.3 C 04/04/19 16:00 Pulse 96 04/04/19 16:00 Resp 20 04/04/19 16:00 BP 148/76 H 04/04/19 16:00 Pulse Ox 92 L 04/04/19 16:00 I&O - Last 24 Hours: Intake & Output 04/04/19 04/04/19 04/04/19 06:59 14:59 22:59 Intake Total 502 379 5529 Output Total 1550 1550 Balance -950 240 -270 Lab Results Last 24 Hours: Laboratory Results - last 24 hr 04/04/19 04/04/19 04/04/19 Range/Units 06:00 06:00 06:47 WBC 14.43 H (4.0-11.0) K/uL RBC 5.58 (4.30-5.90) M/uL Hgb 14.8 (12.0-16.0) g/dL Hct 43.3 (36.0-46.0) % MCV 77.6 L (80.0-98.0) fL MCH 26.5 L (27.0-32.0) pg MCHC 34.2 (31.0-37.0) g/dL RDW Std Deviation 43.3 (28.0-62.0) fl RDW Coeff of Rafael 15 (11.0-15.0) % Plt Count 245 (150-400) K/uL MPV 10.00 (7.40-12.00) fL Add Manual Diff YES Neutrophils % (Manual) 86 H (48.0-80.0) % Band Neutrophils % 1 % Lymphocytes % (Manual) 6 L (16.0-40.0) % Monocytes % (Manual) 7 (0.0-15.0) % Nucleated RBC % 1.7 /100WBC Absolute Seg Neuts 12.4 H (1.4-5.7) Band Neutrophils # 0.1 Lymphocytes # (Manual) 0.9 (0.6-2.4) Monocytes # (Manual) 1.0 H (0.0-0.8) Nucleated RBCs # 0 K/uL Sodium 135 L (136-145) mmol/L Potassium 5.1 (3.5-5.1) mmol/L Chloride 98 (98-107) mmol/L Carbon Dioxide 29.3 (21.0-32.0) mmol/L BUN 17 (7.0-18.0) mg/dL Creatinine 0.7 (0.6-1.0) mg/dL Est Cr Clr Drug Dosing 75.94 mL/min Estimated GFR (MDRD) > 60.0 ml/min Glucose 158 H (74-106) mg/dL POC Glucose 147 H (60-110) mg/dL Calcium 8.7 (8.5-10.1) mg/dL Phosphorus 3.5 (2.6-4.7) mg/dL Magnesium 2.4 (1.8-2.4) mg/dL 04/04/19 Range/Units 11:52 WBC (4.0-11.0) K/uL RBC (4.30-5.90) M/uL Hgb (12.0-16.0) g/dL Hct (36.0-46.0) % MCV (80.0-98.0) fL MCH (27.0-32.0) pg MCHC (31.0-37.0) g/dL RDW Std Deviation (28.0-62.0) fl RDW Coeff of Rafael (11.0-15.0) % Plt Count (150-400) K/uL MPV (7.40-12.00) fL Add Manual Diff Neutrophils % (Manual) (48.0-80.0) % Band Neutrophils % % Lymphocytes % (Manual) (16.0-40.0) % Monocytes % (Manual) (0.0-15.0) % Nucleated RBC % /100WBC Absolute Seg Neuts (1.4-5.7) Band Neutrophils # Lymphocytes # (Manual) (0.6-2.4) Monocytes # (Manual) (0.0-0.8) Nucleated RBCs # K/uL Sodium (136-145) mmol/L Potassium (3.5-5.1) mmol/L Chloride (98-107) mmol/L Carbon Dioxide (21.0-32.0) mmol/L BUN (7.0-18.0) mg/dL Creatinine (0.6-1.0) mg/dL Est Cr Clr Drug Dosing mL/min Estimated GFR (MDRD) ml/min Glucose (74-106) mg/dL POC Glucose 135 H (60-110) mg/dL Calcium (8.5-10.1) mg/dL Phosphorus (2.6-4.7) mg/dL Magnesium (1.8-2.4) mg/dL Med Orders - Current: Current Medications Discontinued Medications Acetaminophen (Tylenol) 650 mg PO Q4H PRN PRN Reason: Pain (Mild 1-3)/fever Last Admin: 04/01/19 00:18 Dose: 650 mg Albuterol (Proventil Neb Soln) 2.5 mg NEB Q2H PRN PRN Reason: Shortness Of Breath/wheezing Albuterol/Ipratropium (Duoneb 3.0-0.5 Mg/3 Ml) 3 ml NEB ONETIME ONE Stop: 03/31/19 08:30 Last Admin: 03/31/19 10:20 Dose: 3 ml Albuterol/Ipratropium (Duoneb 3.0-0.5 Mg/3 Ml) 3 ml NEB Q4HRRT [facility] Last Admin: 04/04/19 14:20 Dose: 3 ml Amlodipine Besylate (Norvasc) 10 mg PO DAILY [facility] Last Admin: 04/04/19 09:27 Dose: 10 mg Furosemide (Lasix) 20 mg IVPUSH NOW ONE Stop: 04/01/19 11:25 Last Admin: 04/01/19 11:41 Dose: 20 mg Furosemide (Lasix) 40 mg IVPUSH NOW ONE Stop: 04/02/19 09:55 Last Admin: 04/02/19 10:17 Dose: 40 mg Guaifenesin/Codeine Phosphate (Robitussin Ac) 5 ml PO Q6H PRN PRN Reason: Cough Last Admin: 04/03/19 11:55 Dose: 5 ml Magnesium Sulfate 2 gm/ Premix 50 mls @ 50 mls/hr IV ONETIME ONE Stop: 03/31/19 11:35 Last Admin: 03/31/19 10:43 Dose: 50 mls/hr Sodium Chloride (Normal Saline) 1,000 mls @ 100 mls/hr IV ASDIRECTED [facility] Last Infusion: 04/01/19 08:18 Dose: Infused Sodium Chloride (Normal Saline) 500 mls @ 500 mls/hr IV STAT ONE Stop: 04/02/19 17:38 Last Admin: 04/02/19 17:08 Dose: 500 mls/hr Insulin Aspart (Novolog) 0 unit SUBCUT TIDAC [facility]; Protocol Last Admin: 04/02/19 17:29 Dose: 2 units Insulin Aspart (Novolog) 0 unit SUBCUT TIDAC [facility]; Protocol Last Admin: 04/04/19 13:00 Dose: Not Given Iopamidol (Isovue-370 (76%)) 65 ml IVPUSH ONETIME STA Stop: 04/03/19 14:34 Last Admin: 04/03/19 14:33 Dose: 65 ml Levofloxacin (Levaquin) 750 mg PO DAILY@1700 [facility] Last Admin: 04/03/19 17:35 Dose: 750 mg Levothyroxine Sodium (Levothyroxine) 125 mcg PO ACBREAKFAST [facility] Last Admin: 04/04/19 07:07 Dose: 125 mcg Levothyroxine Sodium (Synthroid) 50 mcg PO ACBREAKFAST [facility] Last Admin: 04/04/19 07:07 Dose: 50 mcg Methylprednisolone Sodium Succinate (Solu-Medrol) 125 mg IVPUSH ONETIME ONE Stop: 03/31/19 13:48 Last Admin: 03/31/19 14:31 Dose: 125 mg Methylprednisolone Sodium Succinate (Solu-Medrol) 40 mg IVPUSH Q12H [facility] Methylprednisolone Sodium Succinate (Solu-Medrol) 40 mg IVPUSH Q8H [facility] Last Admin: 04/02/19 06:32 Dose: 40 mg Methylprednisolone Sodium Succinate (Solu-Medrol) 40 mg IVPUSH Q12H [facility] Last Admin: 04/04/19 09:27 Dose: 40 mg Metoprolol Succinate (Toprol Xl) 25 mg PO DAILY [facility] Last Admin: 04/04/19 09:28 Dose: 25 mg Ondansetron HCl (Zofran) 4 mg IVPUSH Q4H PRN PRN Reason: Nausea Sodium Chloride (Saline Flush) 2.5 ml FLUSH ASDIRECTED PRN PRN Reason: Keep Vein Open Sepsis Event Note - Focused Exam Vital Signs: Vital Signs Temp Pulse Pulse Resp BP BP Pulse Ox 04/04/19 16:00 36.3 C 96 20 148/76 H 92 L 04/04/19 12:58 89 L 04/04/19 12:00 94 L 04/04/19 11:45 36.2 C 93 16 141/80 H 92 L 04/04/19 09:28 89 163/76 H 04/04/19 09:27 163/76 H Date Exam was Performed: 04/04/19 Time Exam was Performed: 20:59 - Problem List & Annotations (1) CAP (community acquired pneumonia) SNOMED Code(s): 138032874 Code(s): J18.9 - PNEUMONIA, UNSPECIFIED ORGANISM Status: Acute (2) HTN (hypertension) SNOMED Code(s): 70650840 Code(s): I10 - ESSENTIAL (PRIMARY) HYPERTENSION Status: Chronic Qualifiers: Hypertension type: essential hypertension Qualified Code(s): I10 - Essential (primary) hypertension (3) Acute bronchitis SNOMED Code(s): 07900220 Code(s): J20.9 - ACUTE BRONCHITIS, UNSPECIFIED Status: Acute - Plan Plan:: I have seen and evaluated the patient and agree with the residents note unless specified in my note
[2019-04-03] MEDS: Albuterol/Ipratropium 3.0-0.5 MG/3 ML Neb Soln NEB SCH ×6 (02:23→21:40)
[2019-04-03] MEDS: Levothyroxine 50 MCG Tab PO SCH (06:31)
[2019-04-03] MEDS: Levothyroxine 125 MCG Tab PO SCH (06:31)
[2019-04-03] MEDS: Insulin Aspart 100 Units/ML 3 ML Pen SUBCUT SCH ×3 (06:31→17:36)
[2019-04-03 07:11] LABS: BLOOD UREA NITROGEN,BUN 18 mg/dL (7.0-18.0); CARBON DIOXIDE,CO2 28.2 mmol/L (21.0-32.0); CHLORIDE,CL 97 mmol/L (98-107); GLUCOSE RANDOM 166 mg/dL (74-106); POTASSIUM,K 5.3 mmol/L (3.5-5.1); SODIUM,NA 131 mmol/L (136-145)
[2019-04-03] MEDS: methylPREDNISolone Sodium Succinate 40 MG/1 ML SDV IVPUSH SCH ×2 (09:02→22:11)
[2019-04-03] MEDS: amLODIPine 5 MG Tab PO SCH (09:03)
[2019-04-03] MEDS: Metoprolol Succinate 25 MG Tab.ER PO SCH (09:03)
[2019-04-03] MEDS: Codeine/guaiFENesin 100-10 MG/5 ML Syrup 5 ML Cup PO PRN (11:55)
--- NOTE | 2019-04-03 12:43 | PCM.PN ---
- General Info Date of Service: 04/03/19 Admission Dx/Problem (Free Text): Admission Diagnosis/Problem Admission Diagnosis/Problem Bronchitis Subjective Update: seen at examined at bedside, sitting up on chair, states feels better but still requiring oxygen, failed ambulatory pulse oxy trail per nursing dropped to 88% on RA. - Review of Systems General: Denies: Fever, Weakness, Fatigue Pulmonary: Reports: Cough, Wheezing. Denies: Shortness of Breath, Pleuritic Chest Pain Cardiovascular: Denies: Chest Pain, Palpitations, Dyspnea on Exertion Gastrointestinal: Denies: Abdominal Pain, Constipation, Decreased Appetite Genitourinary: Denies: Dysuria, Frequency, Burning Musculoskeletal: Denies: Neck Pain, Shoulder Pain, Arm Pain Skin: Denies: Cyanosis, Jaundice, Mottled Neurological: Denies: Confusion, Dizziness, Headache Psychiatric: Denies: Confusion, Depression - Patient Data Vitals - Most Recent: Last Vital Signs Temp 36.2 C 04/03/19 11:40 Pulse 88 04/03/19 11:40 Resp 16 04/03/19 11:40 BP 141/73 H 04/03/19 11:40 Pulse Ox 92 L 04/03/19 11:40 Weight - Most Recent: 152.2 kg I&O - Last 24 Hours: Intake & Output 04/02/19 04/03/19 04/03/19 22:59 06:59 14:59 Intake Total 1050 700 480 Output Total 1600 1700 Balance -550 -1000 480 Lab Results Last 24 Hours: Laboratory Results - last 24 hr 04/02/19 04/02/19 04/03/19 Range/Units 06:08 17:26 05:45 WBC (4.0-11.0) K/uL RBC (4.30-5.90) M/uL Hgb (12.0-16.0) g/dL Hct (36.0-46.0) % MCV (80.0-98.0) fL MCH (27.0-32.0) pg MCHC (31.0-37.0) g/dL RDW Std Deviation (28.0-62.0) fl RDW Coeff of Rafael (11.0-15.0) % Plt Count (150-400) K/uL MPV (7.40-12.00) fL Add Manual Diff Neutrophils % (Manual) (48.0-80.0) % Band Neutrophils % % Lymphocytes % (Manual) (16.0-40.0) % Monocytes % (Manual) (0.0-15.0) % Metamyelocytes % % Absolute Seg Neuts (1.4-5.7) Band Neutrophils # Lymphocytes # (Manual) (0.6-2.4) Monocytes # (Manual) (0.0-0.8) Absolute Metamyelocyte Sodium (136-145) mmol/L Potassium (3.5-5.1) mmol/L Chloride (98-107) mmol/L Carbon Dioxide (21.0-32.0) mmol/L BUN (7.0-18.0) mg/dL Creatinine (0.6-1.0) mg/dL Est Cr Clr Drug Dosing mL/min Estimated GFR (MDRD) ml/min Glucose (74-106) mg/dL POC Glucose 178 H 141 H (60-110) mg/dL Calcium (8.5-10.1) mg/dL Total Bilirubin (0.2-1.0) mg/dL AST (15-37) IU/L ALT (14-63) IU/L Alkaline Phosphatase (46-116) U/L Total Protein (6.4-8.2) g/dL Albumin (3.4-5.0) g/dL Globulin (2.6-4.0) g/dL Albumin/Globulin Ratio (0.9-1.6) TSH 3rd Generation 0.62 (0.36-3.74) uIU/mL 04/03/19 04/03/19 04/03/19 Range/Units 06:20 06:20 11:48 WBC 16.36 H (4.0-11.0) K/uL RBC 5.38 (4.30-5.90) M/uL Hgb 14.3 (12.0-16.0) g/dL Hct 40.4 (36.0-46.0) % MCV 75.1 L (80.0-98.0) fL MCH 26.6 L (27.0-32.0) pg MCHC 35.4 (31.0-37.0) g/dL RDW Std Deviation 39.9 (28.0-62.0) fl RDW Coeff of Rafael 15 (11.0-15.0) % Plt Count 347 (150-400) K/uL MPV 9.70 (7.40-12.00) fL Add Manual Diff YES Neutrophils % (Manual) 89 H (48.0-80.0) % Band Neutrophils % 1 % Lymphocytes % (Manual) 3 L (16.0-40.0) % Monocytes % (Manual) 5 (0.0-15.0) % Metamyelocytes % 2 % Absolute Seg Neuts 14.6 H (1.4-5.7) Band Neutrophils # 0.2 Lymphocytes # (Manual) 0.5 L (0.6-2.4) Monocytes # (Manual) 0.8 (0.0-0.8) Absolute Metamyelocyte 0.3 Sodium 131 L (136-145) mmol/L Potassium 5.3 H (3.5-5.1) mmol/L Chloride 97 L (98-107) mmol/L Carbon Dioxide 28.2 (21.0-32.0) mmol/L BUN 18 (7.0-18.0) mg/dL Creatinine 0.7 (0.6-1.0) mg/dL Est Cr Clr Drug Dosing 75.94 mL/min Estimated GFR (MDRD) > 60.0 ml/min Glucose 166 H (74-106) mg/dL POC Glucose 182 H (60-110) mg/dL Calcium 8.6 (8.5-10.1) mg/dL Total Bilirubin 0.2 (0.2-1.0) mg/dL AST 22 (15-37) IU/L ALT 30 (14-63) IU/L Alkaline Phosphatase 81 (46-116) U/L Total Protein 6.8 (6.4-8.2) g/dL Albumin 3.0 L (3.4-5.0) g/dL Globulin 3.8 (2.6-4.0) g/dL Albumin/Globulin Ratio 0.8 L (0.9-1.6) TSH 3rd Generation (0.36-3.74) uIU/mL Med Orders - Current: Current Medications Acetaminophen (Tylenol) 650 mg PO Q4H PRN PRN Reason: Pain (Mild 1-3)/fever Last Admin: 04/01/19 00:18 Dose: 650 mg Albuterol (Proventil Neb Soln) 2.5 mg NEB Q2H PRN PRN Reason: Shortness Of Breath/wheezing Albuterol/Ipratropium (Duoneb 3.0-0.5 Mg/3 Ml) 3 ml NEB Q4HRRT [facility] Last Admin: 04/03/19 09:50 Dose: 3 ml Amlodipine Besylate (Norvasc) 10 mg PO DAILY [facility] Last Admin: 04/03/19 09:03 Dose: 10 mg Guaifenesin/Codeine Phosphate (Robitussin Ac) 5 ml PO Q6H PRN PRN Reason: Cough Last Admin: 04/03/19 11:55 Dose: 5 ml Insulin Aspart (Novolog) 0 unit SUBCUT TIDAC [facility]; Protocol Last Admin: 04/03/19 12:34 Dose: 2 units Levofloxacin (Levaquin) 750 mg PO DAILY@1700 [facility] Last Admin: 04/02/19 17:01 Dose: 750 mg Levothyroxine Sodium (Levothyroxine) 125 mcg PO ACBREAKFAST [facility] Last Admin: 04/03/19 06:31 Dose: 125 mcg Levothyroxine Sodium (Synthroid) 50 mcg PO ACBREAKFAST [facility] Last Admin: 04/03/19 06:31 Dose: 50 mcg Methylprednisolone Sodium Succinate (Solu-Medrol) 40 mg IVPUSH Q12H [facility] Last Admin: 04/03/19 09:02 Dose: 40 mg Metoprolol Succinate (Toprol Xl) 25 mg PO DAILY [facility] Last Admin: 04/03/19 09:03 Dose: 25 mg Ondansetron HCl (Zofran) 4 mg IVPUSH Q4H PRN PRN Reason: Nausea Sodium Chloride (Saline Flush) 2.5 ml FLUSH ASDIRECTED PRN PRN Reason: Keep Vein Open Discontinued Medications Albuterol/Ipratropium (Duoneb 3.0-0.5 Mg/3 Ml) 3 ml NEB ONETIME ONE Stop: 03/31/19 08:30 Last Admin: 03/31/19 10:20 Dose: 3 ml Furosemide (Lasix) 20 mg IVPUSH NOW ONE Stop: 04/01/19 11:25 Last Admin: 04/01/19 11:41 Dose: 20 mg Furosemide (Lasix) 40 mg IVPUSH NOW ONE Stop: 04/02/19 09:55 Last Admin: 04/02/19 10:17 Dose: 40 mg Magnesium Sulfate 2 gm/ Premix 50 mls @ 50 mls/hr IV ONETIME ONE Stop: 03/31/19 11:35 Last Admin: 03/31/19 10:43 Dose: 50 mls/hr Sodium Chloride (Normal Saline) 1,000 mls @ 100 mls/hr IV ASDIRECTED [facility] Last Infusion: 04/01/19 08:18 Dose: Infused Sodium Chloride (Normal Saline) 500 mls @ 500 mls/hr IV STAT ONE Stop: 04/02/19 17:38 Last Admin: 04/02/19 17:08 Dose: 500 mls/hr Insulin Aspart (Novolog) 0 unit SUBCUT TIDAC [facility]; Protocol Last Admin: 04/02/19 17:29 Dose: 2 units Methylprednisolone Sodium Succinate (Solu-Medrol) 125 mg IVPUSH ONETIME ONE Stop: 03/31/19 13:48 Last Admin: 03/31/19 14:31 Dose: 125 mg Methylprednisolone Sodium Succinate (Solu-Medrol) 40 mg IVPUSH Q12H [facility] Methylprednisolone Sodium Succinate (Solu-Medrol) 40 mg IVPUSH Q8H [facility] Last Admin: 04/02/19 06:32 Dose: 40 mg - Exam Quality Assessment: Supplemental Oxygen General: Alert, Oriented, Cooperative, Mild Distress Neck: Supple, Trachea Midline Lungs: Decreased Breath Sounds, Crackles, Rhonchi Cardiovascular: Regular Rate, Regular Rhythm Extremities: Pedal Edema (mild) Peripheral Pulses: 3+: Dorsalis Pedis (L), Dorsalis Pedis (R) Skin: Warm Sepsis Event Note - Evaluation Sepsis Screening Result: Sepsis Risk - Focused Exam Vital Signs: Vital Signs Temp Pulse Pulse Resp BP BP Pulse Ox 04/03/19 11:40 36.2 C 88 16 141/73 H 92 L 04/03/19 09:03 102 H 132/67 04/03/19 07:38 35.8 C 104 H 16 136/78 93 L 04/03/19 03:56 36.6 C 92 23 H 133/69 92 L Date Exam was Performed: 04/03/19 Time Exam was Performed: 12:45 - Problem List & Annotations (1) CAP (community acquired pneumonia) SNOMED Code(s): 834034435 Code(s): J18.9 - PNEUMONIA, UNSPECIFIED ORGANISM Status: Acute Current Visit: Yes (2) HTN (hypertension) SNOMED Code(s): 20264405 Code(s): I10 - ESSENTIAL (PRIMARY) HYPERTENSION Status: Chronic Current Visit: Yes Qualifiers: Hypertension type: essential hypertension Qualified Code(s): I10 - Essential (primary) hypertension (3) Acute bronchitis SNOMED Code(s): 32099402 Code(s): J20.9 - ACUTE BRONCHITIS, UNSPECIFIED Status: Acute Current Visit: No - Problem List Review Problem List Initiated/Reviewed/Updated: Yes - Plan Plan:: 63 year old female admitted with bronchitis, CAP and hypoxia 1. CAP/bronchitis: Improving symptoms but still o2 dependent. Continue Levaquin PO, no obvious consolidation on CXR. Wheezing improving continue Solu-medrol Q12 , Duonebs and IS, cough suppressant Continue oxygen as needed to keep sats above 90%; currently at 1 Liters (was at 4) , will obatin CT angiogram to r/o embolism 2. Hyponatremia: Improving, Urine electrolytes noted, cont fluid restriction 3. HTN: Stable, continue Amlodipine and Metoprolol, f/u on Echo VTE prophylaxis: Lovenox.
[2019-04-03] MEDS ORDERED: Iopamidol 755 Mg/ML 100 ML Bottle IVPUSH STA (14:33)
--- NOTE | 2019-04-03 15:07 | CT ---
CT chest Technique: Multiple axial sections through the chest are obtained. Intravenous contrast was given. Study performed as a pulmonary angiogram protocol. Findings: Pulmonary arteries are suboptimally opacified. No filling defects are seen within the main or proximal segmental branches. Smaller subsegmental pulmonary emboli could easily be missed. Aorta shows no aneurysm. Mild coronary artery calcification is seen. Heart size is slightly enlarged. Visualized upper abdominal structures are unremarkable. Mediastinum and hilar region show no adenopathy or mass. Axillary region show no adenopathy. Lungs are clear with no acute parenchymal change. No pleural effusions are noted. Bone window settings were reviewed which shows no acute osseous finding. Impression: 1. Suboptimal opacification of the pulmonary arteries. No findings of pulmonary embolism within the main or segmental branches. Smaller subsegmental pulmonary emboli could be missed. 2. Nothing acute is otherwise seen on CT study of the chest. Diagnostic code #2 This report was dictated in [place] Standard Time
[2019-04-03] MEDS: Levofloxacin 250 MG Tab PO SCH (17:35)
[2019-04-04] MEDS: Albuterol/Ipratropium 3.0-0.5 MG/3 ML Neb Soln NEB SCH ×4 (02:13→14:20)
[2019-04-04 06:50] LABS: BLOOD UREA NITROGEN,BUN 17 mg/dL (7.0-18.0); CARBON DIOXIDE,CO2 29.3 mmol/L (21.0-32.0); CHLORIDE,CL 98 mmol/L (98-107); GLUCOSE RANDOM 158 mg/dL (74-106); POTASSIUM,K 5.1 mmol/L (3.5-5.1); SODIUM,NA 135 mmol/L (136-145)
[2019-04-04] MEDS: Levothyroxine 125 MCG Tab PO SCH (07:07)
[2019-04-04] MEDS: Levothyroxine 50 MCG Tab PO SCH (07:07)
[2019-04-04] MEDS: Insulin Aspart 100 Units/ML 3 ML Pen SUBCUT SCH ×2 (08:00→13:00)
[2019-04-04] MEDS: amLODIPine 5 MG Tab PO SCH (09:27)
[2019-04-04] MEDS: methylPREDNISolone Sodium Succinate 40 MG/1 ML SDV IVPUSH SCH (09:27)
[2019-04-04] MEDS: Metoprolol Succinate 25 MG Tab.ER PO SCH (09:28)
--- NOTE | 2019-04-04 14:22 | PCM.DCSUM1 ---
Discharge Summary - Hospital Course Brief History: This 63 year old female with pmh of HTN and hypothyroidism presented to the ED via EMS with complaints of worsening shortness of breath and wheezing. She reports she was seen on her PCP yesterday and diagnosed with pneumonia, she was given Levaquin. She said overnight the shortness of breath worsened and along with her cough that she wasn't able to sleep well. SHe overall has malaise. No fevers or chills, scant productive cough, significant wheezing noted and very short of breath even with talking. She reports she got a flu shot this year, no history of pneumonia vaccine. She denies smoking history, but was exposed to significant smoking as a young person. She denies vaping. Denies alcohol use or recreational drug use. In the ED CBC WNL, Hyponatremia noted 129. CXR shows mildly enlarged heart otherwise negative. She was treated with Duonebs in the ED along with Magnesium. She will be admitted for bronchitis and hypoxia. - Discharge Data Discharge Date: 04/04/19 Discharge Disposition: Home, Self-Care 01 Condition: Good - Referral to Home Health Primary Care Physician: Taco Esparza MD - Discharge Diagnosis/Problem(s) (1) Bronchitis SNOMED Code(s): 59955537 ICD Code: J40 - BRONCHITIS, NOT SPECIFIED ACUTE OR CHRONIC Status: Acute (2) CAP (community acquired pneumonia) SNOMED Code(s): 769531604 ICD Code: J18.9 - PNEUMONIA, UNSPECIFIED ORGANISM Status: Acute (3) HTN (hypertension) SNOMED Code(s): 15473961 ICD Code: I10 - ESSENTIAL (PRIMARY) HYPERTENSION Status: Chronic Qualifiers: Hypertension type: essential hypertension Qualified Code(s): I10 - Essential (primary) hypertension (4) Obesity SNOMED Code(s): 389263066, 047172330 ICD Code: E66.9 - OBESITY, UNSPECIFIED Status: Chronic - Patient Instructions Diet: Heart Healthy Diet Activity: Cough & Deep Breathe, No Strenuous Activities, Rest and Relax Today Showering/Bathing: May Shower Notify Provider of: Fever, Increased Pain, Swelling and Redness, Drainage, Nausea and/or Vomiting - Discharge Plan *PRESCRIPTION DRUG MONITORING PROGRAM REVIEWED*: Not Applicable *COPY OF PRESCRIPTION DRUG MONITORING REPORT IN PATIENT KATHLEEN: Not Applicable Prescriptions/Med Rec: predniSONE [Prednisone] 10 - 40 mg PO DAILY #30 tablet Home Medications: Home Meds Levothyroxine 175 mcg PO DAILY 12/10/14 [History] amLODIPine Besylate [Amlodipine Besylate] 10 mg PO DAILY 12/10/14 [History] Metoprolol Succinate 25 mg PO DAILY 06/25/18 [History] Albuterol Sulfate [Proair Hfa] 8.5 gm IH ASDIRECTED PRN 03/31/19 [History] Levofloxacin [Levaquin] 750 mg PO DAILY 03/31/19 [History] Acetaminophen [Tylenol] 650 mg PO Q4H PRN tablet 04/04/19 [Rx] predniSONE [Prednisone] 10 - 40 mg PO DAILY #30 tablet 04/04/19 [Rx] Oxygen Therapy Mode: Room Air Patient Handouts: Acute Bronchitis, Adult, [id number], Prednisone tablets Referrals: [facility] [Outside] Taco Esparza MD [Primary Care Provider] - 04/14/19 11:00 am (Arrive 15 minutes early with a photo ID and insurance card.) - Discharge Summary/Plan Comment DC Time >30 min.: No Discharge Summary/Plan Comment: Admitting Diagnoses: Bronchitis Hypoxia CAP- suspected Discharge Diagnoses: Bronchitis Hypoxia Consider reactive airway disease, COPD vs Asthma Other PMH: Obesity HTN Aguilar was admitted due to bronchitis, significant wheezing and hypoxia. She had been started on antibiotics as an outpatient for pneumonia, which she had started a day prior to admission. CXR on admission shows no consolidation but she was kept on Levaquin as started as outpatient during her stay for suspected CAP. She was started on Solu-medrol for wheezing that was noted, as well ad scheduled duonebs. She slowly improved, but needed to be transferred to inpatient care as hypoxia continued and slowly improved. CT angio was obtained due to slow improvement, this was otherwise normal. Today she was able to be weaned off oxygen. She will be discharged home on long prednisone taper. She no longer is in need on oxygen or antibiotics. SHe is to continue using Albuterol inhaler PRN at home. I will arrange for outpatient PFT to evaluate for lung disease. During admission, hyponatremia noted, likely due to acute lung illness and fluid overload. SHe was restricted fluids and given small dose of Lasix. Na improved to 135 on discharge. She is to monitor water intake at home and not to drink excess like she was close to 4.5 L daily. ECHO pending on admission. She will be discharged home today. Rest and relax until Thursday. She is to continue Steroids and inhaler. She is to return to ED or clinic if concerns should arise. - General Info Date of Service: 04/04/19 Admission Dx/Problem (Free Text: Admission Diagnosis/Problem Admission Diagnosis/Problem Bronchitis Subjective Update: DOing well today, report she is feeling much improved today and has been up moving and showered. Able to be weaned off oxygen today and is doing well. - Patient Data Vitals - Most Recent: Last Vital Signs Temp 97.1 F 04/04/19 11:45 Pulse 93 04/04/19 11:45 Resp 16 04/04/19 11:45 BP 141/80 H 04/04/19 11:45 Pulse Ox 89 L 04/04/19 12:58 Weight - Most Recent: 150.6 kg I&O - Last 24 hours: Intake & Output 04/03/19 04/04/19 04/04/19 22:59 06:59 14:59 Intake Total 1050 600 240 Output Total 1700 1550 Balance -650 -950 240 Lab Results - Last 24 hrs: Laboratory Results - last 24 hr 04/03/19 04/04/19 04/04/19 Range/Units 17:34 06:00 06:00 WBC 14.43 H (4.0-11.0) K/uL RBC 5.58 (4.30-5.90) M/uL Hgb 14.8 (12.0-16.0) g/dL Hct 43.3 (36.0-46.0) % MCV 77.6 L (80.0-98.0) fL MCH 26.5 L (27.0-32.0) pg MCHC 34.2 (31.0-37.0) g/dL RDW Std Deviation 43.3 (28.0-62.0) fl RDW Coeff of Rafael 15 (11.0-15.0) % Plt Count 245 (150-400) K/uL MPV 10.00 (7.40-12.00) fL Add Manual Diff YES Neutrophils % (Manual) 86 H (48.0-80.0) % Band Neutrophils % 1 % Lymphocytes % (Manual) 6 L (16.0-40.0) % Monocytes % (Manual) 7 (0.0-15.0) % Nucleated RBC % 1.7 /100WBC Absolute Seg Neuts 12.4 H (1.4-5.7) Band Neutrophils # 0.1 Lymphocytes # (Manual) 0.9 (0.6-2.4) Monocytes # (Manual) 1.0 H (0.0-0.8) Nucleated RBCs # 0 K/uL Sodium 135 L (136-145) mmol/L Potassium 5.1 (3.5-5.1) mmol/L Chloride 98 (98-107) mmol/L Carbon Dioxide 29.3 (21.0-32.0) mmol/L BUN 17 (7.0-18.0) mg/dL Creatinine 0.7 (0.6-1.0) mg/dL Est Cr Clr Drug Dosing 75.94 mL/min Estimated GFR (MDRD) > 60.0 ml/min Glucose 158 H (74-106) mg/dL POC Glucose 147 H (60-110) mg/dL Calcium 8.7 (8.5-10.1) mg/dL Phosphorus 3.5 (2.6-4.7) mg/dL Magnesium 2.4 (1.8-2.4) mg/dL 04/04/19 04/04/19 Range/Units 06:47 11:52 WBC (4.0-11.0) K/uL RBC (4.30-5.90) M/uL Hgb (12.0-16.0) g/dL Hct (36.0-46.0) % MCV (80.0-98.0) fL MCH (27.0-32.0) pg MCHC (31.0-37.0) g/dL RDW Std Deviation (28.0-62.0) fl RDW Coeff of Rafael (11.0-15.0) % Plt Count (150-400) K/uL MPV (7.40-12.00) fL Add Manual Diff Neutrophils % (Manual) (48.0-80.0) % Band Neutrophils % % Lymphocytes % (Manual) (16.0-40.0) % Monocytes % (Manual) (0.0-15.0) % Nucleated RBC % /100WBC Absolute Seg Neuts (1.4-5.7) Band Neutrophils # Lymphocytes # (Manual) (0.6-2.4) Monocytes # (Manual) (0.0-0.8) Nucleated RBCs # K/uL Sodium (136-145) mmol/L Potassium (3.5-5.1) mmol/L Chloride (98-107) mmol/L Carbon Dioxide (21.0-32.0) mmol/L BUN (7.0-18.0) mg/dL Creatinine (0.6-1.0) mg/dL Est Cr Clr Drug Dosing mL/min Estimated GFR (MDRD) ml/min Glucose (74-106) mg/dL POC Glucose 147 H 135 H (60-110) mg/dL Calcium (8.5-10.1) mg/dL Phosphorus (2.6-4.7) mg/dL Magnesium (1.8-2.4) mg/dL Med Orders - Current: Current Medications Acetaminophen (Tylenol) 650 mg PO Q4H PRN PRN Reason: Pain (Mild 1-3)/fever Last Admin: 04/01/19 00:18 Dose: 650 mg Albuterol (Proventil Neb Soln) 2.5 mg NEB Q2H PRN PRN Reason: Shortness Of Breath/wheezing Albuterol/Ipratropium (Duoneb 3.0-0.5 Mg/3 Ml) 3 ml NEB Q4HRRT [facility] Last Admin: 04/04/19 14:20 Dose: 3 ml Amlodipine Besylate (Norvasc) 10 mg PO DAILY [facility] Last Admin: 04/04/19 09:27 Dose: 10 mg Guaifenesin/Codeine Phosphate (Robitussin Ac) 5 ml PO Q6H PRN PRN Reason: Cough Last Admin: 04/03/19 11:55 Dose: 5 ml Insulin Aspart (Novolog) 0 unit SUBCUT TIDAC [facility]; Protocol Last Admin: 04/04/19 13:00 Dose: Not Given Levofloxacin (Levaquin) 750 mg PO DAILY@1700 [facility] Last Admin: 04/03/19 17:35 Dose: 750 mg Levothyroxine Sodium (Levothyroxine) 125 mcg PO ACBREAKFAST [facility] Last Admin: 04/04/19 07:07 Dose: 125 mcg Levothyroxine Sodium (Synthroid) 50 mcg PO ACBREAKFAST [facility] Last Admin: 04/04/19 07:07 Dose: 50 mcg Methylprednisolone Sodium Succinate (Solu-Medrol) 40 mg IVPUSH Q12H [facility] Last Admin: 04/04/19 09:27 Dose: 40 mg Metoprolol Succinate (Toprol Xl) 25 mg PO DAILY [facility] Last Admin: 04/04/19 09:28 Dose: 25 mg Ondansetron HCl (Zofran) 4 mg IVPUSH Q4H PRN PRN Reason: Nausea Sodium Chloride (Saline Flush) 2.5 ml FLUSH ASDIRECTED PRN PRN Reason: Keep Vein Open Discontinued Medications Albuterol/Ipratropium (Duoneb 3.0-0.5 Mg/3 Ml) 3 ml NEB ONETIME ONE Stop: 03/31/19 08:30 Last Admin: 03/31/19 10:20 Dose: 3 ml Furosemide (Lasix) 20 mg IVPUSH NOW ONE Stop: 04/01/19 11:25 Last Admin: 04/01/19 11:41 Dose: 20 mg Furosemide (Lasix) 40 mg IVPUSH NOW ONE Stop: 04/02/19 09:55 Last Admin: 04/02/19 10:17 Dose: 40 mg Magnesium Sulfate 2 gm/ Premix 50 mls @ 50 mls/hr IV ONETIME ONE Stop: 03/31/19 11:35 Last Admin: 03/31/19 10:43 Dose: 50 mls/hr Sodium Chloride (Normal Saline) 1,000 mls @ 100 mls/hr IV ASDIRECTED [facility] Last Infusion: 04/01/19 08:18 Dose: Infused Sodium Chloride (Normal Saline) 500 mls @ 500 mls/hr IV STAT ONE Stop: 04/02/19 17:38 Last Admin: 04/02/19 17:08 Dose: 500 mls/hr Insulin Aspart (Novolog) 0 unit SUBCUT TIDAC [facility]; Protocol Last Admin: 04/02/19 17:29 Dose: 2 units Iopamidol (Isovue-370 (76%)) 65 ml IVPUSH ONETIME STA Stop: 04/03/19 14:34 Last Admin: 04/03/19 14:33 Dose: 65 ml Methylprednisolone Sodium Succinate (Solu-Medrol) 125 mg IVPUSH ONETIME ONE Stop: 03/31/19 13:48 Last Admin: 03/31/19 14:31 Dose: 125 mg Methylprednisolone Sodium Succinate (Solu-Medrol) 40 mg IVPUSH Q12H ANILA Methylprednisolone Sodium Succinate (Solu-Medrol) 40 mg IVPUSH Q8H [facility] Last Admin: 04/02/19 06:32 Dose: 40 mg - Exam Quality Assessment: Reports: Supplemental Oxygen General: Reports: Alert, Oriented Lungs: Reports: Normal Respiratory Effort, Wheezing (scant) Cardiovascular: Reports: Regular Rate, Regular Rhythm GI/Abdominal Exam: Normal Bowel Sounds, Soft, Non-Tender Extremities: Normal Inspection, Normal Range of Motion, Non-Tender, Pedal Edema (+1, non pitting)
[2019-04-04 16:56] VITALS: BP 148/76; PULSE 96
--- NOTE | 2019-04-05 12:39 | ECHO ---
EXAM DATE: 03/31/19 PATIENT'S AGE: 63 The echocardiogram report can be seen in this patient's EMR (Electronic Medical Record) in the Reports section. The report has also been scanned into PACs. PRAKASH
== END 2019-04-04 16:40 | disposition home or self-care (01) | DRG 145 ==
LOC: MW.ED 08:10 → MW.MS 10:26 → OBSVTOIN 10:26 → INTOOBSV 04-01 12:19 → OBSVTOIN 04-01 12:19 → MW.MS 04-01 14:19
PROVIDERS: ADMIT Student in an Organized Health Care Education/Training Program; ATTEND Student in an Organized Health Care Education/Training Program
DX: J20.9 Acute bronchitis, unspecified (principal); J18.9 Pneumonia, unspecified organism; J44.0 Chronic obstructive pulmonary disease with (acute) lower respiratory infection; I10 Essential (primary) hypertension; E03.9 Hypothyroidism, unspecified; E87.70 Fluid overload, unspecified; E66.01 Morbid (severe) obesity due to excess calories; E87.1 Hypo-osmolality and hyponatremia; Z88.8 Allergy status to other drugs, medicaments and biological substances; Z88.2 Allergy status to sulfonamides; Z79.51 Long term (current) use of inhaled steroids; Z79.2 Long term (current) use of antibiotics; Z79.899 Other long term (current) drug therapy; Z99.81 Dependence on supplemental oxygen; Z68.43 Body mass index [BMI] 50.0-59.9, adult
CPT/HCPCS: 36415; 71045; 71045-26; 71275; 71275-26; 80048; 80053; 82436; 82803; 82962; 83036; 83605; 83735; 84100; 84133; 84295; 84300; 84443; 84484; 85025; 93005; 93306; 94640; 96365; 96375; 96376; 99284; 99285-25; A9270-GY; G0378; J1815-GY; J1940; J2920; J2930; J3475; J7030; J7620-GY; Q9967

== ENCOUNTER 2021-11-23 08:48 | Emergency (ER) | payer BC ==
[2021-11-23 09:44] VITALS: BP 155/77; PULSE 79
== END 2021-11-23 09:37 | disposition home or self-care (01) ==
LOC: MW.ED 08:48
DX: K92.1 Melena (principal); I10 Essential (primary) hypertension; E66.9 Obesity, unspecified; Z68.43 Body mass index [BMI] 50.0-59.9, adult; Z91.048 Other nonmedicinal substance allergy status; Z88.2 Allergy status to sulfonamides; Z91.041 Radiographic dye allergy status; Z79.899 Other long term (current) drug therapy
CPT/HCPCS: 99283